=== PATIENT | female | born 1955 | race Caucasian/White ===

== ENCOUNTER 2018-04-07 05:00 | Inpatient (IN) ==
[2018-04-07] MEDS ORDERED: 0.9 % SODIUM CHLORIDE 250 ML IV SCH ×4 (05:15→08:45)
[2018-04-07] MEDS ORDERED: NOREPINEPHRINE BITARTRATE 8 MG in 0.9 % SODIUM CHLORIDE 242 ML IV SCH ×2 (05:15→19:15)
[2018-04-07] MEDS ORDERED: 0.9 % SODIUM CHLORIDE 2,000 ML IV ONE (05:26)
[2018-04-07] MEDS ORDERED: 0.9 % SODIUM CHLORIDE 1,000 ML IV ONE ×2 (05:42→06:34)
[2018-04-07] MEDS ORDERED: NOREPINEPHRINE BITARTRATE 4 MG/4 ML VIAL IV ONE (05:44)
[2018-04-07] MEDS ORDERED: cefTRIAXone 1 GM VIAL IM ONE (05:44)
[2018-04-07] MEDS ORDERED: NOREPINEPHRINE BITARTRATE 16 MG in 0.9 % SODIUM CHLORIDE 234 ML IV SCH (05:45)
[2018-04-07] MEDS ORDERED: cefTRIAXone 1 GM VIAL IV ONE (05:56)
[2018-04-07 06:00] LABS: Basophils # (Auto) 0 K/mcL (0.0-0.3); Basophils % (Auto) 0 % (0.0-2.0); Eosinophils # (Auto) 0 K/mcL (0.0-0.7); Eosinophils % (Auto) 0 % (0.0-7.0); Granulocytes % (Auto) 97.2 % (38.0-78.0); Lymphocytes # (Auto) 0.5 K/mcL (1.5-4.8); Lymphocytes % (Auto) 1.1 % (15.5-49.0); Mean Cell Volume 90.7 fL (80.0-100.0); Mean Corpuscular HGB Conc 32.9 g/dL (31.0-36.0); Monocytes # (Auto) 0.7 K/mcL (0.1-0.9); Monocytes % (Auto) 1.7 % (1.0-12.0); Platelet Count 129 K/mcL (140-440); RBC 3.81 M/mcL (4.00-5.20); Red Cell Distribution Width 14.1 % (11.5-14.5)
--- NOTE | 2018-04-07 06:13 | Emergency Department Note ---
Weakness HPI - General Chief complaint: Weakness Stated complaint: weakness, diarrhea, and dizziness Time Seen by Provider: 04/07/18 05:04 Source: patient, EMS Mode of arrival: EMS - History of Present Illness HPI Narrative: This 62-year-old comes via ambulance after calling EMS herself because of weakness she could hardly even walk across the nur she was so weak. She is eaten poorly recently lost 4 pounds and has not drank that well. She describes back spasms and abdominal pain and fever with chills and shivers in the past couple of days. She recently started Cipro with 1 dose just last evening or the evening before. This is her fourth urinary tract infection since September she reports. REVIEW OF SYSTEMS: Reports chronic runny nose. No chest pain. Feels short of breath with the chills and shakes. Has been nauseated but no vomiting. She has had 3 episodes of diarrhea in the last evening. Her stools seem dark but she did not see specifically any blood Has some chronic sinus headache. Some dizziness/lightheadedness and imbalance and nearly feeling like she is going to pass out but has not fallen. Has some right upper back near the trapezius area discomfort that has been going on for a month or so. No anxiety or depression. - Related Data Home Medications Medication Instructions Recorded Confirmed alprazolam 0.25 mg tablet 0.125 mg PO Q8H PRN tab 01/05/15 01/05/15 coenzyme Q10 200 mg capsule 200 mg PO QDAY cap 01/05/15 01/05/15 fluticasone 50 mcg/actuation nasal 2 spray INTRANASAL QDAY g 01/05/15 01/05/15 spray,suspension hydrocodone 7.5 mg-acetaminophen 1 tab PO QID tab 01/05/15 01/05/15 325 mg tablet lisinopril 5 mg tablet 5 mg PO QDAY PRN 01/05/15 01/05/15 methocarbamol 750 mg tablet 750 mg PO QID tab 01/05/15 01/05/15 niacin ER 500 mg capsule,extended See Dose Instructions PO .COMPLEX 01/05/15 01/05/15 release pravastatin 40 mg tablet 40 mg PO QDAY tab 01/05/15 01/05/15 sitagliptin 50 mg-metformin 500 mg 1 tab PO BID 01/05/15 01/05/15 tablet Allergies Allergy/AdvReac Type Severity Reaction Status Date / Time aloe Allergy Unknown unknown Unverified 01/05/15 15:55 Penicillins Allergy Unknown unknown Unverified 01/05/15 15:55 propoxyphene [From Darvon] Allergy Unknown unknown Unverified 01/05/15 15:55 Past Medical History - Past Medical History [facility] Narrative: Medical History (Last Updated 04/07/18 @ 06:16 by Ke Molina DO) Tobacco abuse (Chronic) Diabetes mellitus, type II (Chronic) Recurrent UTI (urinary tract infection) (Chronic) Hypertension, essential (Chronic) Microalbuminuria (Chronic) Hyperlipidemia (Chronic) Hypertriglyceridemia (Chronic) Restless leg syndrome (Chronic) GERD (gastroesophageal reflux disease) (Chronic) Depression screening (Chronic) Back pain (Chronic) DDD (degenerative disc disease), cervical (Chronic) Spinal stenosis, cervical region (Chronic) Neck pain (Resolved) Family History Father History of coronary artery bypass surgery Malignant neoplasm of lung Mother History of coronary artery bypass surgery Type 2 diabetes mellitus Sister Type 2 diabetes mellitus Medical history: Denies: cancer, coronary artery disease, CVA, DVT, hypoth yroidism, myocardial infarction, pneumonia, pulmonary embolus Psychiatric history: Denies: anxiety, depression - Social History smoking status: Current every day smoker (3/4 pack/day) Alcohol use: Denies: None Drug use: Denies: none, marijuana Physical Exam General appearance: alert, lethargic, malaise Head: atraumatic, normocephalic Eye: Present: EOMI ENT: mucous membranes dry, other (Very dry lips) Neck: Present: trachea midline. Absent: lymphadenopathy, thyromegaly Chest: Present: symmetric chest wall rise Respiratory: Present: normal lung sounds bilaterally. Absent: respiratory distr ess, wheezes, stridor, accessory muscle use, prolonged expiratory phase Cardiovascular: Present: regular rate, normal rhythm. Absent: systolic murmur, diastolic murmur Abdominal: Present: soft. Absent: distention, tenderness, guarding, rebound, rigidity, organomegaly, mass Extremities: Absent: pedal edema, pretibial edema, calf tenderness Back: Absent: CVA tenderness (R), CVA tenderness (L), spinous process tenderness Neurological: Present: alert, oriented X3, other (Mildly slow speech.) Psychiatric: Present: flat affect, serious Skin: Present: warm, dry Course Vital Signs Blood Pressure 71/45 04/07/18 05:10 Temperature 96.9 F L 04/07/18 05:51 Pulse Rate 85 04/07/18 05:51 Respiratory Rate 21 04/07/18 05:51 Blood Pressure 81/53 04/07/18 05:51 Pulse Oximetry (%) 100 04/07/18 05:51 Weakness - MDM Narrative Medical decision making narrative: Patient arrived hypotensive and was seen around 5:07 AM. She was given 2 L of IV fluids followed by a third. 2 of these were heated. Levo fed was started because of blood pressures persisting in the 70s systolic even after 2+ liters of fluid. She weighs 50 kg. She was talking and interacting with us during all of this time. She was clear in her NO CPR choice explaining that her 6 years ago and she has no surviving children. She lives in her home with several nieces and nephews or grandnieces. Blood cultures and multiple labs were obtained. Lactic acid comes back with 5.9 and WBC of 43.5. This is with a marketed shift of granulocytosis. Blood sugar at 90. Rocephin 1 g was given. Levophed titrated from 8 to 10 to 13 to 16 mcg/min as of 6:19 AM. EKG demonstrates normal sinus rhythm consistently in the 80s (interesting that she did not ever develop a tachycardia). EKG shows no ACS findings. Listed is prolonged QT interval and biatrial abnormalities. Saini catheter with thermometer placed with 0 urine return. 6:15 AM I spoke with hospitalist, Dr. Crump, who agrees to assist in management of this patient and to see her. - Lab Data Lab results reviewed: Yes I reviewed the patient's lab results. Result diagrams: 04/07/18 05:15 04/07/18 05:15 Lab Results 04/07/18 04/07/18 04/07/18 Range/Units 05:15 05:15 05:15 WBC 43.5 H* (4.5-11.0) K/mcL RBC 3.81 L (4.00-5.20) M/mcL Hgb 11.4 L (12.0-15.0) g/dL Hct 34.6 L (36.0-48.0) % MCV 90.7 (80.0-100.0) fL MCH 29.8 (26.0-34.0) pg MCHC 32.9 (31.0-36.0) g/dL RDW 14.1 (11.5-14.5) % Plt Count 129 L (140-440) K/mcL MPV 8.3 (7.4-10.4) fL Gran % 97.2 H (38.0-78.0) % Lymph % (Auto) 1.1 L (15.5-49.0) % [place] % (Auto) 1.7 (1.0-12.0) % Eos % (Auto) 0 (0.0-7.0) % Baso % (Auto) 0 (0.0-2.0) % Gran # 42.3 H (1.8-8.0) K/mcL Lymph # (Auto) 0.5 L (1.5-4.8) K/mcL [place] # (Auto) 0.7 (0.1-0.9) K/mcL Eos # (Auto) 0 (0.0-0.7) K/mcL Baso # (Auto) 0 (0.0-0.3) K/mcL VBG Lactic Acid 5.9 H* (0.5-2.0) mmol/L Troponin T < 0.01 (0-0.03) ng/ml Disposition Pt seen by FORDER OPERATOR/PA only: No Clinical Impression: Sepsis due to urinary tract infection, Upper back pain on right side Hypotension Qualifiers: Hypotension type: other hypotension type Qualified Code(s): I95.89 - Other hypotension Diabetes mellitus type 2, controlled, with complications Qualifiers: Diabetes mellitus manager long term care insulin use: without manager long term care use Qualified Code(s): E11.8 - Type 2 diabetes mellitus with unspecified complications Disposition: Xfer As Inpt ([facility]) Referrals: Sveta Mahoney ARNP [Primary Care Provider] -
[2018-04-07 06:14] LABS: ALT/SGPT 106 U/l (0-40); Albumin 2.5 gm/dL (3.2-5.2); Alkaline Phosphatase 258 U/L (39-117); Blood Urea Nitrogen 39 mg/dl (8-23); C-Reactive Protein 16.9 mg/dl (0.0-0.8)
[2018-04-07] MEDS ORDERED: VASOPRESSIN 20 UNIT in DEXTROSE 5% IN WATER 99 ML IV SCH ×2 (06:45→14:45)
[2018-04-07] MEDS ORDERED: VASOPRESSIN 20 UNIT in DEXTROSE 5% IN WATER 99 ML IV ONE ×2 (06:50→08:45)
--- NOTE | 2018-04-07 07:22 | Internal Med History&Physical ---
Medical - H&P: HPI Patient information: Note initiated : 04/07/18 at 7:18 am Service Date, if different from initiated Date: [] Patient: Giselle Brice a 62 y/o F admitted on for weakness, diarrhea, and dizziness. Chief Complaint: [] History of present illness: Ms. Brice is a 62 year old F with h/o DM, HTN, HLD presents to the ER today for evaluation of weakness. The patient notes that she has been having foul smelling urine for quite a while now, over 4-6 weeks, the patient was being followed by her PCP in the outpatient clinic and had completed 1 round of antibiotics, I believe symptoms persisted and her abx was changed to cipro, she took the first dose yesterday evening. The patient does not know the first abx, thinks it started with a "T". The patient since last evening has not been feeling well, just very weak and tired, unable to ambulate from the bed to the bathroom, and she therefore decided to come to the ER for further eval The patient notes since 1 week she has been having left flank pain, intermittent, and worsening back spams, the patient notes it radiates up or down, no aggravating or relieving factors, she does not have the pain right now. The patient admits to having history of some kidney stones in the past. Patient notes that she has some nausea and has not been eating well but notes that she has been drinking her usual amounts of fluids. She also complains of increased cramps. She denies any headache sinus pain difficulty in swallowing changes in hearing changes in vision, denies any cough chest pain, she admits to having shortness of breath with minimal exertion, she admits to having 3 episodes of diarrhea since last night. She has not passed any urine. The patient denies any new joint pains skin rashes, denies any depression denies any other complaints On presentation to the hospital the patient was hypothermic 88.8, heart rate 89, blood pressure 64/42 ( lowest) respirations 18, saturating 90% on room air. Chest x-ray was negative. The patient's labs showed a WBC count of 40,500, hemoglobin 11.4, platelets 129. Sodium 132, potassium 3.4 chloride 102, bicarbonate 12.9 gap 18, creatinine 2.7 BUN 39 AST 106 ALT 86 alkaline phosphatase 258, lactic acid 5.9, albumin 2.5 Patient was given IV antibiotics blood cultures were sent no urine was available as the patient did not make any urine despite placing a Saini catheter, patient was given 2 L of IV fluids and then started on Levophed. Patient is being admitted to the hospital to the ICU patient's previous cultures reviewed, urine cultures were sent on 19 February which is growing E. coli pansensitive except tetracycline, 03/01 showed a mixed growth, and 04/06 is showing gram-negative bacillus for the speciation pending All systems: reviewed and no additional remarkable complaints except as stated (as per HPI rest negative) Medical - H&P: PMH Medical history: DM HTN HLD Chr back pain smoker History of renal stones as per patient Surgical history: Hysterectomy Pertinent family history: Mother father and sister all had myocardial infarct Social history: Active smoker, [id number] history of smoking Denies any active use of alcohol denies any use of marijuana or any other drugs Medical - H&P: Meds Home Medications Medication Instructions Recorded Confirmed Type coenzyme Q10 200 mg capsule 200 mg PO QDAY cap 01/05/15 04/07/18 History fluticasone 50 mcg/actuation nasal 2 spray INTRANASAL QDAY g 01/05/15 04/07/18 History spray,suspension hydrocodone 7.5 mg-acetaminophen 1 tab PO QID tab 01/05/15 04/07/18 History 325 mg tablet lisinopril 5 mg tablet 5 mg PO QDAY 01/05/15 04/07/18 History methocarbamol 750 mg tablet 750 mg PO QID tab 01/05/15 04/07/18 History pravastatin 40 mg tablet 40 mg PO QDAY tab 01/05/15 04/07/18 History sitagliptin 50 mg-metformin 500 mg 1 tab PO BID 01/05/15 04/07/18 History tablet Allergies Allergy/AdvReac Type Severity Reaction Status Date / Time aloe Allergy Unknown unknown Unverified 01/05/15 15:55 Penicillins Allergy Unknown unknown Unverified 01/05/15 15:55 propoxyphene [From Darvon] Allergy Unknown unknown Unverified 01/05/15 15:55 Medical - H&P: Exam - Constitutional Vitals: Temp Pulse Resp BP Pulse Ox 97.7 F 92 H 19 88/51 98 04/07/18 07:01 02/23/19 07:01 04/07/18 07:01 04/07/18 07:01 04/07/18 07:01 Exam: GENERAL: The patient is a well-developed, well-nourished in no apparent distress. Is alert and oriented x3. VITAL SIGNS: Reviewed and as noted elsewhere. HEENT: Head is normocephalic and atraumatic. Extraocular muscles are intact. Pupils are equal, round, and reactive to light. Nares appeared normal. Mouth appears any without lesions. Mucous membranes are dry. NECK: Normal to inspection, Supple, No lymphadenopathy or thyromegaly. LUNGS: Air entry equal on both sides, no wheezing, crackles or rhonchi noted. No accessory muscles of respiration HEART: Regular rate and rhythm normal, S1 and S2 heard, no Gallop, S3 or Rub N oted, No Gross murmur heard. ABDOMEN: Soft, nontender, and nondistended. RUQ tenderness present, Left flank tenderness, Positive bowel sounds. No hepatosplenomegaly was noted. EXTREMITIES: No cyanosis, clubbing, rash, lesions or edema. NEUROLOGIC: Cranial nerves II through XII are grossly intact. Motor and Sensory System Grossly Intact PSYCHIATRIC: Normal affect, Normal Mood. Appropriate Behavior. SKIN: No ulceration or wounds noted, No jaundice, No rash noted. Medical - H&P: Reslt - Labs CBC & Chem 7: 04/07/18 05:15 04/07/18 05:15 Labs: Short CBC 04/07/18 Range/Units 05:15 WBC 43.5 H* (4.5-11.0) K/mcL Hgb 11.4 L (12.0-15.0) g/dL Hct 34.6 L (36.0-48.0) % Plt Count 129 L (140-440) K/mcL BMP 04/07/18 05:15 Sodium 132 L Potassium 3.4 Chloride 102 Carbon Dioxide 12 L BUN 39 H Creatinine 2.7 H Glucose 102 Calcium 8.0 L Cardiac Enzymes 04/07/18 Range/Units 05:15 Troponin T < 0.01 (0-0.03) ng/ml Liver Function 04/07/18 Range/Units 05:15 Total Bilirubin 0.3 (0.0-1.0) mg/dL AST 86 H (0-37) U/l ALT 106 H (0-40) U/l Alkaline Phosphatase 258 H (39-117) U/L Albumin 2.5 L (3.2-5.2) gm/dL Medical - H&P: A/P - Narrative A/P Narrative: A/P Severe sepsis with shock Urosepsis Lactic Acidosis Acute Kidney Injury, with Anuria Abnormal Liver function test Thrombocytopenia Hypoalbuminemia Hypokalemia HTN DM HLD Hypothermia on presentation (resolved) Plan Admit to ICU Aggressive fluid resuscitation, 4L already given in ER, will give another 2 Levophed and vasopressin as needed to keep MAP > 65 If pt is unable to wean off pressors soon, will place central line, will see if there is a need for HD, in which case a trialysis catheter would be more appropriate. Get CT abdomen and pelvis without contrast IV rocephin for now, follow cultures, likely urinary source Nephrology consult given severe acidosis and Renal failure with anuria Hold bp meds SSI insulin for glucose control DVT hep sq Full code NPO for now.
--- NOTE | 2018-04-07 07:45 | XRay Report ---
INDICATION: Dyspnea TECHNIQUE: AP chest x-ray,portable semiupright COMPARISON: Previous chest x-rays dated 0 623 11/17/2022 7 FINDINGS:Lungs are negative. No parenchymal infiltrate or mass. Heart size and vascularity are normal. No pulmonary edema. No pulmonary congestion. No acute abnormality or interval change IMPRESSION: Negative AP chest x-ray Interpreted and Authenticated by: Gonzales Thornton 04/07/18
--- NOTE | 2018-04-07 08:03 | Nephrology Consult Note ---
History of Present Illness - Reason for Consult Patient information: Note initiated : 04/07/18 at 8:01 am Patient: Giselle Brice 62 y/o F admitted on for weakness, diarrhea, and dizziness. Consult date: 04/07/18 acute renal failure, hyponatremia, metabolic acidosis Requesting physician: Frances Crump - Chief Complaint Weakness - History of Present Illness Giselle Brice is a 62-year-old female with hypertension, hyperlipidemia, diabetes mellitus type 2, being admitted on 04/07/18. She presented to ED for weakness. She has been given multiple courses of antibiotics for urinary infection. She has remote history of kidney stones. Review of Systems Constitutional: lethargy, weakness Nose, mouth and throat: no nasal congestion, no sore throat Cardiovascular: no chest pain, no palpatations Respiratory: no cough, no dyspnea Gastrointestinal: diarrhea, no abdominal pain, no nausea, no vomiting Genitourinary: no hematuria Musculoskeletal: no joint swelling, no neck pain Integumentary: no rash, no wounds Neurological: no confusion, no focal weakness Psychiatric: no anxiety, no panic attacks Endocrine: no cold intolerance, no heat intolerance Hematologic/Lymphatic: no easy bleeding, no easy bruising Allergic/Immunologic: no tongue swelling, no uticaria Past History Past medical history: hypertension Hyperlipidemia Diabetes mellitus type 2 Past surgical history: Hysterectomy Past family history: No history of kidney disease Past social history: Active smoker, [id number] history of smoking Denies any active use of alcohol denies any use of marijuana or any other drugs Medications and Allergies Home Medications Medication Instructions Recorded Confirmed Type coenzyme Q10 200 mg capsule 200 mg PO QDAY cap 01/05/15 04/07/18 History fluticasone 50 mcg/actuation nasal 2 spray INTRANASAL QDAY g 01/05/15 04/07/18 History spray,suspension hydrocodone 7.5 mg-acetaminophen 1 tab PO QID tab 01/05/15 04/07/18 History 325 mg tablet lisinopril 5 mg tablet 5 mg PO QDAY 01/05/15 04/07/18 History methocarbamol 750 mg tablet 750 mg PO QID tab 01/05/15 04/07/18 History pravastatin 40 mg tablet 40 mg PO QDAY tab 01/05/15 04/07/18 History sitagliptin 50 mg-metformin 500 mg 1 tab PO BID 01/05/15 04/07/18 History tablet Allergies Allergy/AdvReac Type Severity Reaction Status Date / Time aloe Allergy Unknown unknown Unverified 01/05/15 15:55 Penicillins Allergy Unknown unknown Unverified 01/05/15 15:55 propoxyphene [From Darvon] Allergy Unknown unknown Unverified 01/05/15 15:55 Exam - Vital Signs Vital signs: Temp Pulse Resp BP Pulse Ox 97.7 F 91 H 18 120/60 99 04/07/18 07:29 04/07/18 07:29 04/07/18 07:29 04/07/18 07:21 04/07/18 07:29 - General Appearance General appearance: appears started age, fatigue EENT: mucous membranes moist Neck: supple Respiratory: clear Cardiology: no edema Gastrointestinal: no tenderness Integumentary: no rash, warm and dry Neurologic: no focal deficit, alert and oriented x3 Musculoskeletal: no deformities Psychiatric: mood/affect appropriate, cooperative Results - Lab Results 04/07/18 05:15 04/07/18 05:15 Most recent lab results Calcium 8.0 mg/dl (8.6-10.4) L 04/07/18 05:15 Assessment and Plan (1) Acute kidney injury Acute kidney injury with anuria likely acute tubular necrosis associated with s epsis, with high anion gap metabolic acidosis (lactic acidosis) and hyponatremia, present on arrival. There is no recent history of IV contrast administration or NSAID use. Plan: IV fluid resuscitation is in progress. CT Abdomen and Pelvis without contrast, urinalysis requested. No need for acute hemodialysis. Avoid NSAIDs, nephrotoxic medications and IV contrast. Monitor BMP and urine output. Status: Acute Priority: High (2) Metabolic acidosis Status: Acute Priority: Medium
--- NOTE | 2018-04-07 08:19 | Cat Scan Report ---
CLINICAL INFORMATION: Renal failure. Urosepsis. COMPARISON: None. TECHNIQUE: Axial images were obtained through the abdomen and pelvis. Sagittally and coronally reformatted images. FINDINGS: There are renal calculi bilaterally. Multiple right renal stones. No hydronephrosis or hydroureter. There are multiple left renal stones. There is a 9 mm calculus at the left ureteropelvic junction. Left kidney is enlarged and edematous. The collecting system is not well visualized. There is probable mild hydronephrosis. Pyonephrosis is suspected. There is a 14 mm round mass in the posterior mid right kidney. Appearance is consistent with a hyperdense cyst. There is a probable 3.8 cm left upper pole cyst. There is an 8 mm hyperdense mid to upper pole round abnormality in the left kidney. This is probably a hyperdense cyst. Follow-up ultrasound is recommended to better evaluate for cysts and rule out solid mass. Both kidneys appear edematous and pyelonephritis is possible, left worse than right Urinary bladder is not distended. There is no bladder calculus. There is a Saini catheter in the vagina. This needs to be repositioned. The nurse in the emergency room was called, 04/07/2018, 0800 Lung bases are negative. No focal infiltrate. There is no pleural fluid. No pericardial fluid. Liver is negative to the limits of noncontrast enhanced examination. No hepatic abscess or detectable mass. Liver contour is smooth. No significant ascites. Gallbladder is present. There is no calcified stone. Spleen is not enlarged. Pancreas is negative. No detectable pancreatic mass. No peripancreatic fluid collection. Adrenal glands are prominent but without definite discrete mass. No detectable colonic mass. No evidence for diverticulitis. No mechanical small bowel obstruction. Previous hysterectomy. No adnexal mass. There is no pneumoperitoneum. No biliary or portal venous gas. No intra-abdominal abscess. There is extensive soft tissue edema with infiltration of mesenteric and retroperitoneal fat. There is extensive perinephric edema. No perinephric abscess. IMPRESSION: 1. Multiple renal calculi bilaterally. 9 mm stone at the left ureteropelvic junction with mild left hydronephrosis. Pyonephrosis is possible. Pyelonephritis is also possible 2. Retroperitoneal and mesenteric edema. There is infiltration of the perinephric spaces bilaterally without discrete perinephric abscess 3. Saini catheter within the vagina. This should be repositioned 4. No intra-abdominal abscess The exam was performed using radiation dose optimization techniques including, but not limited to, automated exposure control, adjustment of the mA and/or kV according to patient size and use of iterative reconstruction technique. Interpreted and Authenticated by: Gonzales Thornton 04/07/18
[2018-04-07] MEDS ORDERED: DEXTROSE 31 GM ORAL.SUSP PO PRN ×2 (08:45→13:21)
[2018-04-07] MEDS ORDERED: ONDANSETRON 4 MG/2 ML VIAL IV PRN ×2 (08:45→13:21)
[2018-04-07] MEDS ORDERED: cefTRIAXone 2 GM in DEXTROSE 5% IN WATER 50 ML IV SCH (08:45)
[2018-04-07] MEDS ORDERED: HYDROmorphone 2 MG/ML VIAL IV PRN ×2 (08:45→13:21)
[2018-04-07] MEDS ORDERED: DEXTROSE 50% 50 ML VIAL IV PRN ×2 (08:45→13:21)
[2018-04-07] MEDS ORDERED: LACTATED RINGERS 1,000 ML IV SCH (08:45)
[2018-04-07] MEDS ORDERED: POTASSIUM CHLORIDE 20 MEQ PACKET PO ONE (08:45)
[2018-04-07] MEDS ORDERED: ALBUTEROL SULFATE 2.5 MG/3 ML NEBULIZER NEB PRN ×2 (08:45→13:21)
[2018-04-07] MEDS ORDERED: PRAVASTATIN 40 MG TABLET PO SCH (09:00)
[2018-04-07] MEDS ORDERED: FLUTICASONE PROPIONATE SPRAY.NAS NS SCH (09:00)
[2018-04-07] MEDS ORDERED: SIMVASTATIN 20 MG TABLET PO SCH (09:00)
[2018-04-07] MEDS: INSULIN LISPRO 1 UNIT/0.01 ML UNIT SQ SCH ×4 (09:10→20:44)
[2018-04-07] MEDS: HEPARIN 5,000 UNIT/ML VIAL SQ SCH ×3 (09:19→20:45)
[2018-04-07 09:20] LABS: Appearance,Urine HAZY; Bacteria,Urine 0 /hpf (0); Bilirubin,Urine NEG (NEG); Color,Urine YELLOW; Glucose,Urine (UA) NEGATIVE (NEG); Leukocyte Esterase,Urine 250 /uL (NEG); Protein,Urine NEG (NEG); Specific Gravity,Urine 1.008 (1.000-1.035); Urine Amorphous Crystals MOD /hpf (0); Urine Blood 0.2 mg/dL (<0.03); Urine RBC 4 /hpf (0-1); Urine Squamous Epithelial Cell 1 /hpf (0-4); Urine WBC 23 /hpf (0-4); Urobilinogen,Urine NEG (NEG)
[2018-04-07] MEDS ORDERED: LORazepam 2 MG/ML VIAL IV ONE (09:26)
[2018-04-07] MEDS ORDERED: MAGNESIUM SULFATE 2 GM/50 ML BAG IV ONE (10:40)
[2018-04-07] MEDS: HYDROCODONE/APAP 7.5/325MG TABLET PO SCH ×4 (10:49→20:58)
--- NOTE | 2018-04-07 10:49 | Procedure Note ---
Procedures - Central Line Placement Right IJ Time out performed: Yes Patient placed on monitor/pulse ox: Yes MD prep: mask, sterile gown, sterile gloves, cap Central line prep: 2% Chlorhexidine scrub Local anesthesia used: lidocaine 1% Ultrasound used for placement: Yes Central line lumen inserted: quad, 16 cm Post procedure: sutured in place, good blood return, all ports aspirated, flushed, capped, sterile dressing applied Post procedure x-ray: tip of catheter in good position, no pneumothorax seen Patient tolerated procedure: well, no complications Complications: none
[2018-04-07] MEDS: METHOCARBAMOL 750 MG TABLET PO SCH ×4 (10:50→20:59)
--- NOTE | 2018-04-07 10:55 | XRay Report ---
INDICATION: Status post right central venous catheter placement TECHNIQUE: AP chest x-ray,portable COMPARISON: Previous examination dated 04/07/2018 FINDINGS:Right central venous catheter with its tip at the junction of superior vena cava and right atrium. There is no detectable pneumothorax. Lungs remain negative. No focal pulmonary parenchymal infiltrate or mass. Heart size and vascularity are normal. IMPRESSION: 1. Right central venous catheter has the junction of the right atrium and superior vena cava 2. No pneumothorax Interpreted and Authenticated by: Gonzales Thornton 04/07/18
[2018-04-07] MEDS ORDERED: POTASSIUM CHLORIDE 40 MEQ in DEXTROSE 5% IN WATER 250 ML IV ONE (11:00)
[2018-04-07] MEDS ORDERED: fentaNYL 100 MCG/2 ML VIAL IV ONE (12:25)
[2018-04-07] MEDS ORDERED: MIDAZOLAM 2 MG/2 ML VIAL IV ONE (12:25)
[2018-04-07] MEDS ORDERED: LIDOCAINE HCL/PF 100 MG/5 ML SYRINGE IV ONE (12:25)
[2018-04-07] MEDS ORDERED: ONDANSETRON 4 MG/2 ML VIAL IV ONE (12:25)
[2018-04-07] MEDS ORDERED: PHENYLEPHRINE 10 MG/ML VIAL IV ONE (12:25)
[2018-04-07] MEDS ORDERED: PROPOFOL 200 MG/20 ML VIAL IV ONE (12:25)
[2018-04-07] MEDS ORDERED: DEXAMETHASONE 10 MG/ML VIAL IV ONE (12:25)
--- NOTE | 2018-04-07 12:46 | Brief Operative Note ---
Date of procedure: 04/07/18 Pre-op diagnosis: left pyelonephritis Post-op diagnosis: same Procedure: left ureteral stent Grafts/Implants: Yes (ureteral stent) Anesthesia: GLMA Findings: see note Complications: none Surgeon: Moose Hu Specimens Removed/Pathology: none sent Condition: stable Disposition: ICU
--- NOTE | 2018-04-07 13:13 | XRay Report ---
CLINICAL INFORMATION: Obstructing calculus and urosepsis. Left ureteral stent placement TECHNIQUE: 0.7 minutes fluoroscopy utilized by Dr Hu. Spot films obtained. Left ureteral stent was placed. Spot film demonstrates a stent passing the left sided stone at the ureterovesical junction and within the left renal collecting system. IMPRESSION: Fluoroscopy and spot films obtained. Left ureteral stent placement by Dr. Hu Interpreted and Authenticated by: Gonzales Thornton 04/07/18
--- NOTE | 2018-04-07 13:40 | History and Physical Report ---
DATE OF ADMISSION: 04/07/2018 PREOPERATIVE DIAGNOSIS: Left renal stone. REQUESTING PHYSICIAN: Dr. Crump. HISTORY OF PRESENT ILLNESS: Mrs. Brice is a 62-year-old lady, who has hypertension, hyperlipidemia and diabetes, who was admitted for urinary infection and also a left renal stone. She has been treated on and off for an infection for the last month and recently was switched over to Cipro because she was not improving. She did develop left flank pain and weakness. A CT scan was obtained, which showed a high-grade obstruction of the left kidney. Her white count was 43,000. She had a stone about 10 years ago and never underwent intervention for this. She denied any burning with urination. She presents now for left stent placement. PAST MEDICAL HISTORY: Significant for hypertension, hyperlipidemia and diabetes. PAST SURGICAL HISTORY: Hysterectomy. FAMILY HISTORY: Noncontributory. SOCIAL HISTORY: Does smoke. No alcohol. ALLERGIES: PENICILLIN, BUT SHE DOES NOT KNOW WHAT SHE DEVELOPED WITH THIS AND DARVON. HOME MEDICATIONS: Fluticasone, hydrocodone, lisinopril, pravastatin and sitagliptin and metformin. REVIEW OF SYSTEMS: CONSTITUTIONAL: Positive lethargy, weakness. CARDIOVASCULAR: No chest pain. RESPIRATORY: No wheezing, coughing or asthma. GASTROINTESTINAL: Positive diarrhea. GENITOURINARY: As above. MUSCULOSKELETAL: No joint swelling. The rest of 12-point review of systems is negative. PHYSICAL EXAMINATION: GENERAL: This is a pleasant lady in slight distress. VITAL SIGNS: As listed per nurse's notes. HEENT: Atraumatic, normocephalic. Extraocular movements are intact. Pupils equal, reactive to light and accommodation. Mucosa is normal. NECK: Supple. RESPIRATORY: Clear to auscultation. HEART: Regular rate and rhythm. ABDOMEN: Soft, nontender. : Normal female anatomy. EXTREMITIES: Without clubbing, cyanosis or edema. NEUROLOGIC: Intact. Cranial nerves II-XII intact. LABORATORY DATA: Creatinine is 2.7. White count of 43.5. IMPRESSION: The patient with a left renal stone. This appears to be obstructing and causing sepsis. I will take her to the operating room for stent placement. I have gone over the procedure with the patient and complications including bleeding, infection, pain, non-cure of the problem, need for additional therapy and she understands. A full PARQ discussion was held and we will follow up at the time of surgery. MICAH:salome Job ID: [id number] Doc ID: [id number] Moose Hu MD
[2018-04-07] MEDS ORDERED: 0.9 % SODIUM CHLORIDE 10 ML SYRINGE IV SCH ×2 (14:00→21:00)
[2018-04-07] MEDS: 0.9 % SODIUM CHLORIDE 10 ML SYRINGE IV SCH ×3 (14:26→20:58)
[2018-04-07] MEDS: 0.9 % SODIUM CHLORIDE 250 ML IV SCH (14:29)
[2018-04-07] MEDS: LACTATED RINGERS 1,000 ML IV SCH ×2 (15:14→22:27)
[2018-04-07] MEDS: NOREPINEPHRINE BITARTRATE 16 MG in 0.9 % SODIUM CHLORIDE 234 ML IV SCH (16:20)
[2018-04-08] MEDS: 0.9 % SODIUM CHLORIDE 250 ML IV SCH ×2 (04:00→13:56)
[2018-04-08 05:27] LABS: ALT/SGPT 78 U/l (0-40); Albumin 2.2 gm/dL (3.2-5.2); Albumin/Globulin Ratio 0.8 (1.0-2.3); Alkaline Phosphatase 202 U/L (39-117); Bilirubin,Direct < 0.2 mg/dL (0.0-0.3); Blood Urea Nitrogen 29 mg/dl (8-23); Gamma Glutamyl Transpeptidase 106 U/L (5-36); Uric Acid 5.4 mg/dL (2.5-8.0)
[2018-04-08 05:28] LABS: Basophils # (Auto) 0 K/mcL (0.0-0.3); Basophils % (Auto) 0 % (0.0-2.0); Eosinophils # (Auto) 0 K/mcL (0.0-0.7); Eosinophils % (Auto) 0 % (0.0-7.0); Granulocytes % (Auto) 97.3 % (38.0-78.0); Lymphocytes % (Auto) 1.9 % (15.5-49.0); Mean Cell Volume 91.7 fL (80.0-100.0); Mean Corpuscular HGB Conc 32.5 g/dL (31.0-36.0); Monocytes # (Auto) 0.4 K/mcL (0.1-0.9); Monocytes % (Auto) 0.8 % (1.0-12.0); Platelet Count 120 K/mcL (140-440); RBC 3.77 M/mcL (4.00-5.20)
[2018-04-08] MEDS ORDERED: NOREPINEPHRINE BITARTRATE 16 MG in 0.9 % SODIUM CHLORIDE 234 ML IV SCH (05:45)
[2018-04-08] MEDS: 0.9 % SODIUM CHLORIDE 10 ML SYRINGE IV SCH ×9 (05:46→20:17)
[2018-04-08] MEDS: NOREPINEPHRINE BITARTRATE 16 MG in 0.9 % SODIUM CHLORIDE 234 ML IV SCH (06:02)
--- NOTE | 2018-04-08 06:36 | Nephrology Progress Note ---
Subjective Patient information: Note initiated : 04/08/18 at 6:34 am Patient: Giselle Brice 62 y/o F admitted on 04/07/18 for weakness, diarrhea, and dizziness. Chief Complaint: Weakness Principal diagnosis: Acute kidney injury Pertinent ROS: Sleepy No nausea No abdominal pain Saini catheter No edema Objective - Vital Signs Vital signs: Vital Signs Temp Pulse Resp BP BP Pulse Ox 04/08/18 06:01 68 23 H 96/65 96 04/08/18 05:46 67 20 105/73 96 04/08/18 05:31 62 18 108/68 96 04/08/18 05:17 68 16 96 04/08/18 05:16 67 19 110/70 96 04/08/18 04:46 62 18 98/65 97 04/08/18 04:31 64 18 110/64 96 04/08/18 04:16 63 18 98/67 98 04/08/18 04:01 97.7 F 65 20 101/67 98 04/08/18 03:49 67 21 100 04/08/18 03:46 19 100/65 04/08/18 03:31 67 21 103/76 97 04/08/18 03:16 69 20 107/71 98 04/08/18 03:01 64 18 109/76 97 04/08/18 02:46 64 19 97/70 97 04/08/18 02:31 65 18 110/67 97 04/08/18 02:16 66 19 105/70 98 04/08/18 02:01 64 18 101/73 97 04/08/18 01:46 65 19 100/65 98 04/08/18 01:31 65 19 107/78 96 04/08/18 01:16 64 16 108/68 97 04/08/18 01:04 65 21 96 04/08/18 01:01 68 21 110/72 97 04/08/18 00:46 70 19 118/75 100 04/08/18 00:31 71 21 105/73 98 04/08/18 00:16 64 18 105/69 97 04/08/18 00:01 97.6 F 17 106/71 98 04/07/18 23:31 18 104/63 97 04/07/18 23:25 18 04/07/18 23:01 19 102/65 04/07/18 22:46 19 104/69 04/07/18 22:31 20 98/67 04/07/18 22:16 20 97/64 04/07/18 22:01 15 104/73 04/07/18 21:46 19 105/72 04/07/18 21:31 21 109/66 04/07/18 21:16 24 H 111/72 04/07/18 21:01 19 111/75 04/07/18 20:46 72 19 113/74 97 04/07/18 20:31 73 21 107/72 97 04/07/18 20:16 72 22 105/69 99 04/07/18 20:01 98.5 F 22 121/71 04/07/18 19:46 77 23 H 103/68 97 04/07/18 19:31 73 20 109/71 96 04/07/18 19:16 74 22 115/68 96 04/07/18 19:12 73 21 97 04/07/18 19:01 71 20 105/65 96 04/07/18 18:46 72 21 114/65 97 04/07/18 18:31 72 21 112/66 97 04/07/18 18:02 20 105/68 04/07/18 17:58 82 22 105/68 97 04/07/18 17:31 75 20 85/59 96 04/07/18 17:16 72 21 135/72 97 04/07/18 17:01 78 18 84/56 98 04/07/18 16:56 78 26 H 83/56 98 04/07/18 16:54 77 20 79/54 97 04/07/18 16:46 78 21 80/58 100 04/07/18 16:01 99 F 82 25 H 136/67 99 04/07/18 15:01 76 19 110/69 98 04/07/18 14:31 102 H 36 H 136/68 99 04/07/18 14:01 83 21 126/61 96 04/07/18 13:46 80 19 119/60 99 04/07/18 13:31 80 20 105/62 97 04/07/18 13:16 22 137/65 98 04/07/18 13:10 89 20 137/66 95 04/07/18 13:08 87 16 138/104 98 04/07/18 12:01 100.3 F H 91 H 22 119/65 100 04/07/18 11:31 24 H 90/59 04/07/18 11:01 83 24 H 135/64 98 04/07/18 10:46 88 26 H 130/65 98 04/07/18 10:01 85 21 133/68 100 04/07/18 09:32 20 135/65 04/07/18 09:01 98.7 F 91 H 21 94/55 100 04/07/18 08:45 98.7 F 21 94/55 100 04/07/18 08:11 94 H 21 119/60 100 04/07/18 08:10 95 H 21 100 04/07/18 07:41 97.7 F 19 103/54 04/07/18 07:31 97.7 F 92 H 21 120/57 99 04/07/18 07:29 97.7 F 91 H 18 99 04/07/18 07:21 97.7 F 91 H 22 120/60 99 04/07/18 07:11 97.7 F 92 H 18 120/83 100 04/07/18 07:03 97.7 F 91 H 22 95/50 99 04/07/18 07:01 97.7 F 92 H 19 88/51 98 04/07/18 07:00 97.7 F 89 17 97 04/07/18 06:51 97.7 F 87 19 83/50 100 04/07/18 06:46 97.6 F 87 21 100 04/07/18 06:41 97.6 F 88 18 78/50 100 Intake and Output 04/07/18 04/08/18 04/08/18 21:59 05:59 13:59 Intake Total 3039 1030 300 Output Total 1435 358 70 Balance 1604 672 230 Intake: IV 2379 1030 Lactated Ringers 1,000 ml @ 150 2000 mls/hr IV .Q6H40M [facility] Rx#: [id number] Levophed 16 mg In Sodium 51 30 Chloride 0.9% 234 ml @ 10 MCG/ MIN 9.38 mls/hr IV Q24H [facility] Rx# :[id number] Oral 660 300 Output: Urine Catheter Amount 1275 358 70 Void Amount 160 Other: Meal HS snack Percent of Meal Consumed 100% Feeding Ability Independent Urine Appearance Cloudy Purulent Uretheral (Saini) Cloudy Clear Urine Color Pale Uretheral (Saini) Straw Dark Linda Weight 127 lb 6.4 oz Intake & Output: Intake & Output 04/07/18 04/08/18 04/08/18 21:59 05:59 13:59 Intake Total 3039 1030 300 Output Total 1435 358 70 Balance 1604 672 230 Weight 127 lb 6.4 oz Intake: IV 2379 1030 Lactated Ringers 1,000 ml @ 150 2000 mls/hr IV .Q6H40M [facility] Rx#: [id number] Levophed 16 mg In Sodium 51 30 Chloride 0.9% 234 ml @ 10 MCG/ MIN 9.38 mls/hr IV Q24H [facility] Rx# :[id number] Oral 660 300 Output: Urine Catheter Amount 1275 358 70 Void Amount 160 Other: Meal HS snack Percent of Meal Consumed 100% Feeding Ability Independent Urine Appearance Cloudy Purulent Uretheral (Saini) Cloudy Clear Urine Color Pale Uretheral (Saini) Straw Dark Linda - General Appearance General appearance: appears started age, fatigue EENT: mucous membranes moist Neck: supple Respiratory: clear Cardiology: no edema Gastrointestinal: no tenderness Integumentary: warm and dry Neurologic: no focal deficit, alert and oriented x3 Musculoskeletal: no deformities Psychiatric: mood/affect appropriate, cooperative - Lab 04/08/18 04:00 04/08/18 04:00 Most recent lab results Calcium 8.0 mg/dl (8.6-10.4) L 04/08/18 04:00 Phosphorus 2.6 mg/dL (2.7-4.5) L 04/08/18 04:00 Magnesium 2.1 mg/dL (1.6-2.5) 04/08/18 04:00 Assessment and Plan (1) Acute kidney injury Giselle Brice is a 62-year-old female with hypertension, hyperlipidemia and diabetes mellitus type 2, admitted on 04/07/18 for septic shock. Acute kidney injury associated with sepsis due to pyelonephritis and left ureteropelvic junction stone with mild left hydronephrosis, with initial high anion gap metabolic acidosis (lactic acidosis) and hyponatremia, present on arrival. Work up: Urinalysis on 04/07/18: Yellow, hazy, pH 5.0, SG 1.008, protein negative, occult blood 0.2, leukocyte esterase 250, urine WBC 23. CT Abdomen and Pelvis without contrast on 04/07/18: Multiple renal calculi bilaterally. 9 mm stone at the left ureteropelvic junction with mild left h ydronephrosis. Pyonephrosis is possible. Pyelonephritis is also possible. Retroperitoneal and mesenteric edema. There is infiltration of the perinephric spaces bilaterally without discrete perinephric abscess. Saini catheter within the vagina. This should be repositioned. No intra-abdominal abscess. Progress: Left ureteral stent placed on 04/07/18. Urine output: 2400 ml reported in the past 24 hours. Serum creatinine decreased from 2.7 to 1.4 in the past 24 hours. Metabolic acidosis, improved. Hyponatremia, resolved. Plan: No acute hemodialysis need. Avoid NSAIDs, nephrotoxic medications and IV contrast. Monitor BMP and urine output. Status: Acute Priority: High (2) Metabolic acidosis Please see above Status: Acute Priority: Medium
[2018-04-08] MEDS: METHOCARBAMOL 750 MG TABLET PO SCH ×4 (08:21→20:16)
[2018-04-08] MEDS: INSULIN LISPRO 1 UNIT/0.01 ML UNIT SQ SCH ×4 (08:28→20:15)
[2018-04-08] MEDS: HYDROCODONE/APAP 7.5/325MG TABLET PO SCH (08:29)
[2018-04-08] MEDS ORDERED: FLUTICASONE PROPIONATE SPRAY.NAS NS SCH (09:00)
[2018-04-08] MEDS ORDERED: SIMVASTATIN 20 MG TABLET PO SCH ×3 (09:00→21:00)
[2018-04-08] MEDS ORDERED: cefTRIAXone 2 GM in DEXTROSE 5% IN WATER 50 ML IV SCH ×2 (09:00)
--- NOTE | 2018-04-08 09:20 | Internal Med Progress Note ---
Medical - PN: Subj Patient information: Note initiated : 04/08/18 at 9:12 am Service Date, if different from initiated Date: [] Patient: Giselle Brice a 62 y/o F admitted on 04/07/18 for weakness, diarrhea, and dizziness. Chief Complaint: [] Interval history: Ms. Brice is a 62 year old F with h/o DM, HTN, HLD presents to the ER today for evaluation of weakness. The patient notes that she has been having foul smelling urine for quite a while now, over 4-6 weeks, the patient was being followed by her PCP in the outpatient clinic and had completed 1 round of antibiotics, I believe symptoms persisted and her abx was changed to cipro, she took the first dose yesterday evening. The patient does not know the first abx, thinks it started with a "T". The patient since last evening has not been feeling well, just very weak and tired, unable to ambulate from the bed to the bathroom, and she therefore decided to come to the ER for further eval The patient notes since 1 week she has been having left flank pain, intermittent, and worsening back spams, the patient notes it radiates up or down, no aggravating or relieving factors, she does not have the pain right now. The patient admits to having history of some kidney stones in the past. Patient notes that she has some nausea and has not been eating well but notes that she has been drinking her usual amounts of fluids. She also complains of increased cramps. She denies any headache sinus pain difficulty in swallowing changes in hearing changes in vision, denies any cough chest pain, she admits to having shortness of breath with minimal exertion, she admits to having 3 episodes of diarrhea since last night. She has not passed any urine. The patient denies any new joint pains skin rashes, denies any depression denies any other complaints On presentation to the hospital the patient was hypothermic 88.8, heart rate 89, blood pressure 64/42 ( lowest) respirations 18, saturating 90% on room air. Chest x-ray was negative. The patient's labs showed a WBC count of 40,500, hemoglobin 11.4, platelets 129. Sodium 132, potassium 3.4 chloride 102, bicarbonate 12.9 gap 18, creatinine 2.7 BUN 39 AST 106 ALT 86 alkaline phosphatase 258, lactic acid 5.9, albumin 2.5 Patient was given IV antibiotics blood cultures were sent no urine was available as the patient did not make any urine despite placing a Edmondson catheter, patient was given 2 L of IV fluids and then started on Levophed. Patient is being admitted to the hospital to the ICU patient's previous cultures reviewed, urine cultures were sent on 19 February which is growing E. coli pansensitive except tetracycline, 03/01 showed a mixed growth, and 04/06 is showing gram-negative bacillus for the speciation pending 04/08 Pt seen examined, no acute overnight issues s/p stent placement, pt doing well, off pressors WBC up today, but clinically pt is much better follow up cultures, on IV rocephin 2gms q24hrs xfer to tele status Pertinent ROS: Denies headache, dizziness Denies chest pain, palpitations Denies cough or shortness of breath Denies abdominal pain, nausea or vomiting. - Constitutional Vitals: Vital Signs Temp Pulse Resp BP Pulse Ox 98.6 F 63 18 105/69 98 04/08/18 07:31 04/08/18 07:31 04/08/18 09:02 04/08/18 09:02 04/08/18 09:02 Period Temp Pulse Resp BP Sys/Fischer Pulse Ox Last 24 Hr 97.6 F-100.3 F 62-102 15-36 79-138/54-104 95-100 Intake and Output 04/07/18 04/08/18 04/08/18 21:59 05:59 13:59 Intake Total 3039 1030 300 Output Total 1435 358 210 Balance 1604 672 90 Weight 127 lb 6.4 oz Intake & Output: Intake & Output 04/07/18 04/08/18 04/08/18 21:59 05:59 13:59 Intake Total 3039 1030 300 Output Total 1435 358 210 Balance 1604 672 90 Weight 127 lb 6.4 oz Intake: IV 2379 1030 Lactated Ringers 1,000 ml @ 150 2000 mls/hr IV .Q6H40M [facility] Rx#: [id number] Levophed 16 mg In Sodium 51 30 Chloride 0.9% 234 ml @ 10 MCG/ MIN 9.38 mls/hr IV Q24H [facility] Rx# :[id number] Oral 660 300 Output: Urine Catheter Amount 1275 358 210 Void Amount 160 Other: Meal HS snack Percent of Meal Consumed 100% Feeding Ability Independent Urine Appearance Cloudy Clear Purulent Uretheral (Edmondson) Cloudy Clear Urine Color Pale Bright Yellow Uretheral (Edmondson) Straw Dark Linda Exam: Constitutional; Afebrile, cooperative, alert, not in distress. Eyes- No icterus, , No periorbital swelling Ears- Ext ear normal, hearing normal to conversation. Neck- Midline trachea, supple Respiratory system: Air Entry equal on both sides, No crackles or wheezing, no rhonchi. CVS- Rate rhythm regular, S1,S2 heard, no gallop, no rub. Abdomen- Soft nontender abdomen, no organomegaly, no tenderness, no guarding or rigidity, left cva tenderness improved. [employer]- AOOx3, moving all extremities, no gross focal deficit noted. Medical - PN: Obj Da - Labs CBC & Chem 7: 04/08/18 04:00 04/08/18 04:00 Labs: Abnormal Lab Results 04/08/18 04/08/18 04/07/18 04:00 04:00 13:34 WBC 51.0 H* RBC 3.77 L Hgb 11.2 L Hct 34.5 L Plt Count 120 L Gran % 97.3 H Lymph % (Auto) 1.9 L [place] % (Auto) 0.8 L Gran # 49.6 H Lymph # (Auto) 1.0 L VBG Lactic Acid 3.2 H Sodium Chloride 114 H Carbon Dioxide 17 L Anion Gap 7.0 L BUN 29 H Creatinine 1.4 H Glucose 152 H Calcium 8.0 L Phosphorus 2.6 L Magnesium GGT 106 H AST 46 H ALT 78 H Alkaline Phosphatase 202 H C-Reactive Protein Total Protein 5.0 L Albumin 2.2 L Albumin/Globulin Ratio 0.8 L Urine Occult Blood Ur Leukocyte Esterase Urine RBC Urine WBC Amorphous Crystals 04/07/18 04/07/18 04/07/18 08:19 05:15 05:15 WBC RBC Hgb Hct Plt Count Gran % Lymph % (Auto) [place] % (Auto) Gran # Lymph # (Auto) VBG Lactic Acid 5.9 H* Sodium Chloride Carbon Dioxide Anion Gap BUN Creatinine Glucose Calcium Phosphorus Magnesium 1.3 L GGT AST ALT Alkaline Phosphatase C-Reactive Protein Total Protein Albumin Albumin/Globulin Ratio Urine Occult Blood 0.2 A Ur Leukocyte Esterase 250 A Urine RBC 4 H Urine WBC 23 H Amorphous Crystals Mod A 04/07/18 04/07/18 05:15 05:15 WBC 43.5 H* RBC 3.81 L Hgb 11.4 L Hct 34.6 L Plt Count 129 L Gran % 97.2 H Lymph % (Auto) 1.1 L [place] % (Auto) Gran # 42.3 H Lymph # (Auto) 0.5 L VBG Lactic Acid Sodium 132 L Chloride Carbon Dioxide 12 L Anion Gap 18.0 H BUN 39 H Creatinine 2.7 H Glucose Calcium 8.0 L Phosphorus Magnesium GGT AST 86 H ALT 106 H Alkaline Phosphatase 258 H C-Reactive Protein 16.9 H Total Protein 5.1 L Albumin 2.5 L Albumin/Globulin Ratio Urine Occult Blood Ur Leukocyte Esterase Urine RBC Urine WBC Amorphous Crystals Meds: Medications Hydrocodone Bitart/Acetaminophen ([place] 7.5/325mg) 1 tab PO QID [facility] Last Admin: 04/08/18 08:29 Dose: Not Given Documented by: Albuterol Sulfate (Ventolin) 2.5 mg NEB Q2HP PRN PRN Reason: Shortness Of Breath Dextrose (Dextrose 50%) 0 ml IV UD PRN PRN Reason: Hypoglycemia Diagnostic Test (Pha) (Accu-Chek) 1 each FS ACHS [facility] Last Admin: 04/08/18 08:28 Dose: 1 each Documented by: Fluticasone Propionate (Flonase) 2 spray NS QDAY [facility] Last Admin: 04/08/18 08:28 Dose: Not Given Documented by: Glucose (Insta-Glucose) 15 gm PO PRN PRN PRN Reason: Hypoglycemia Heparin Sodium (Porcine) (Heparin) 5,000 unit SQ Q12 [facility] Last Admin: 04/07/18 20:45 Dose: 5,000 unit Documented by: Hydromorphone HCl (Dilaudid) 0.5 mg IV Q2HP PRN PRN Reason: PAIN LEVEL > 6 Ceftriaxone Sodium 2 gm/ (Dextrose) 50 mls @ 100 mls/hr IV DAILY [facility] Norepinephrine Bitartrate 16 (mg/ Sodium Chloride) 250 mls @ 9.38 mls/hr IV Q24H [facility]; Protocol Last Admin: 04/08/18 06:02 Dose: Not Given Documented by: Sodium Chloride (Sodium Chloride 0.9%) 250 mls @ 20 mls/hr IV .[id number] [facility] Last Admin: 04/08/18 04:00 Dose: Not Given Documented by: Insulin Human Lispro (Humalog) 0 unit SQ ACHS [facility]; Protocol Last Admin: 04/08/18 08:28 Dose: Not Given Documented by: Methocarbamol (Robaxin) 750 mg PO QID [facility] Last Admin: 04/08/18 08:21 Dose: 750 mg Documented by: Ondansetron HCl (Zofran) 4 mg IV Q4-6HP PRN PRN Reason: Nausea And Vomiting Simvastatin (Zocor) 20 mg PO DAILY [facility] Sodium Chloride (Saline Flush) 10 ml IV Q8 [facility] Last Admin: 04/08/18 05:46 Dose: 10 ml Documented by: Sodium Chloride (Saline Flush) 10 ml IV Q12 [facility] Last Admin: 04/07/18 20:58 Dose: Not Given Documented by: Medical - PN: A/P - Time Spent With Patient Total time spent is greater than 50% in coordination of care (as documented) at patient's floor/unit and/or counseling patient: - Narrative A/P Narrative: A/P Severe sepsis with shock/ urosepsis -resolving, on IV rocephin 2gms q24 hrs, urine cultures pending, but previous cultures were ecoli. sensitive to rocephin Hydronephrosis/Pyonephrosis - appreciate urology input and help, s/p stent placement, Lactic Acidosis -resolved Leucocytosis -worsening due to manipulation, monitor, clinically stable. HARVINDER -Creat improving, appreciate nephrology input, pt is not anuric, edmondson was initially placed incorrectly Thrombocytopenia -stable Abl lft -stable due to sepsis DM -ssi insulin for glucose control Hypothermia -resolved HTN -hold bp meds, for now. DVT hep sq Full code resume diet Xfer to tele status. Medical - PN: Qual - VTE Deep Vein Thrombosis/Pulmonary Embolism Present on Admission: No
[2018-04-08] MEDS ORDERED: HYDROCODONE/APAP 7.5/325MG TABLET PO PRN ×2 (09:28→13:54)
[2018-04-08] MEDS: HEPARIN 5,000 UNIT/ML VIAL SQ SCH ×2 (09:32→20:15)
[2018-04-08] MEDS ORDERED: DEXTROSE 50% 50 ML VIAL IV PRN (13:54)
[2018-04-08] MEDS ORDERED: ONDANSETRON 4 MG/2 ML VIAL IV PRN (13:54)
[2018-04-08] MEDS ORDERED: HYDROmorphone 2 MG/ML VIAL IV PRN (13:54)
[2018-04-08] MEDS ORDERED: DEXTROSE 31 GM ORAL.SUSP PO PRN (13:54)
[2018-04-08] MEDS ORDERED: ALBUTEROL SULFATE 2.5 MG/3 ML NEBULIZER NEB PRN (13:54)
[2018-04-09] MEDS: 0.9 % SODIUM CHLORIDE 250 ML IV SCH (04:10)
[2018-04-09] MEDS: 0.9 % SODIUM CHLORIDE 10 ML SYRINGE IV SCH ×5 (05:30→22:00)
[2018-04-09] MEDS ORDERED: NOREPINEPHRINE BITARTRATE 16 MG in 0.9 % SODIUM CHLORIDE 234 ML IV PRN ×2 (05:45→09:13)
[2018-04-09 05:49] LABS: Basophils # (Auto) 0 K/mcL (0.0-0.3); Basophils % (Auto) 0 % (0.0-2.0); Eosinophils # (Auto) 0.1 K/mcL (0.0-0.7); Eosinophils % (Auto) 0.2 % (0.0-7.0); Lymphocytes # (Auto) 2.2 K/mcL (1.5-4.8); Lymphocytes % (Auto) 6.3 % (15.5-49.0); Mean Corpuscular HGB Conc 32.9 g/dL (31.0-36.0); Monocytes # (Auto) 0.2 K/mcL (0.1-0.9); Monocytes % (Auto) 0.5 % (1.0-12.0); Platelet Count 114 K/mcL (140-440); RBC 3.81 M/mcL (4.00-5.20); Red Cell Distribution Width 14.3 % (11.5-14.5)
[2018-04-09 06:09] LABS: ALT/SGPT 146 U/l (0-40); Albumin 2.5 gm/dL (3.2-5.2); Albumin/Globulin Ratio 0.9 (1.0-2.3); Alkaline Phosphatase 241 U/L (39-117); Bilirubin,Direct < 0.2 mg/dL (0.0-0.3); Blood Urea Nitrogen 33 mg/dl (8-23); Gamma Glutamyl Transpeptidase 159 U/L (5-36); Uric Acid 6.3 mg/dL (2.5-8.0)
--- NOTE | 2018-04-09 06:23 | Nephrology Progress Note ---
Subjective Patient information: Note initiated : 04/09/18 at 6:20 am Patient: Giselle Brice 62 y/o F admitted on 04/07/18 for weakness, diarrhea, and dizziness. Chief Complaint: Weakness Principal diagnosis: Acute kidney injury Pertinent ROS: No nausea No abdominal pain No edema Objective - Vital Signs Vital signs: Vital Signs Temp Pulse Resp BP Pulse Ox 04/09/18 04:04 97.6 F 17 120/74 98 04/09/18 00:07 97.9 F 17 108/71 97 04/08/18 20:09 18 107/68 100 04/08/18 16:01 98.6 F 16 98/63 99 04/08/18 14:01 106/64 04/08/18 13:01 17 98/67 97 04/08/18 13:00 99 F 04/08/18 12:01 16 104/62 96 04/08/18 11:01 18 102/72 97 04/08/18 10:01 92/59 04/08/18 09:02 18 105/69 98 04/08/18 07:31 98.6 F 63 17 101/63 96 04/08/18 07:01 62 18 90/59 95 04/08/18 06:31 63 17 97/65 97 Intake and Output 04/08/18 04/09/18 04/09/18 21:59 05:59 13:59 Intake Total 720 360 Output Total 230 1075 Balance 490 -715 Intake: Oral 720 360 Output: Urine Catheter Amount 230 1075 Other: Meal Dinner Percent of Meal Consumed 50% Feeding Ability Independent Urine Appearance Clear Uretheral (Saini) Clear Urine Color Bright Yellow Uretheral (Saini) Bright Yellow Weight 127 lb 6.4 oz Intake & Output: Intake & Output 04/08/18 04/09/18 04/09/18 21:59 05:59 13:59 Intake Total 720 360 Output Total 230 1075 Balance 490 -715 Weight 127 lb 6.4 oz Intake: Oral 720 360 Output: Urine Catheter Amount 230 1075 Other: Meal Dinner Percent of Meal Consumed 50% Feeding Ability Independent Urine Appearance Clear Uretheral (Saini) Clear Urine Color Bright Yellow Uretheral (Saini) Bright Yellow - General Appearance General appearance: appears started age, fatigue EENT: mucous membranes moist Neck: supple Respiratory: clear Cardiology: no edema Gastrointestinal: no tenderness Integumentary: warm and dry Neurologic: no focal deficit, alert and oriented x3 Musculoskeletal: no deformities Psychiatric: mood/affect appropriate, cooperative - Lab 04/09/18 04:00 04/09/18 04:00 Most recent lab results Calcium 8.4 mg/dl (8.6-10.4) L 04/09/18 04:00 Phosphorus 2.8 mg/dL (2.7-4.5) 04/09/18 04:00 Magnesium 2.1 mg/dL (1.6-2.5) 04/09/18 04:00 Assessment and Plan (1) Acute kidney injury Giselle Brice is a 62-year-old female with hypertension, hyperlipidemia and diabetes mellitus type 2, admitted on 04/07/18 for septic shock. Acute kidney injury associated with septic shock due to acute gram negative german pyelonephritis and left obstructive uropathy with mild left hydronephrosis due to ureteropelvic junction stone with initial high anion gap metabolic acidosis and lactic acidosis and hyponatremia, present on arrival. Work up: Urinalysis on 04/07/18: Yellow, hazy, pH 5.0, SG 1.008, protein negative, occult blood 0.2, leukocyte esterase 250, urine WBC 23. CT Abdomen and Pelvis without contrast on 04/07/18: Multiple renal calculi surya aterally. 9 mm stone at the left ureteropelvic junction with mild left hydronephrosis. Pyonephrosis is possible. Pyelonephritis is also possible. Retroperitoneal and mesenteric edema. There is infiltration of the perinephric spaces bilaterally without discrete perinephric abscess. Saini catheter within the vagina. This should be repositioned. No intra-abdominal abscess. Progress: Left ureteral stent placed on 04/07/18. Blood and urine cultures growing gram negative bacilli. Last 24 hours: Urine output: 1925 ml reported in the past 24 hours. Serum creatinine decreased from 1.4 to 1.2 in the past 24 hours. Non anion gap metabolic acidosis, improved. Lactic acidosis resolved. Plan: No acute hemodialysis need. Nephrology will sign off. Status: Acute Priority: Medium (2) Metabolic acidosis Please see above Status: Acute Priority: Medium
--- NOTE | 2018-04-09 07:34 | General Surgery Progress Note ---
Surgical - Auxillary Note - Subjective Patient Information: Note initiated : 04/09/18 at 7:32 am Service Date, if different from initiated Date: [] Patient: Giselle Brice 62 y/o F admitted on 04/07/18 for weakness, diarrhea, and dizziness. Chief Complaint: left obstructive pyelonephrits Patient improved. WBC count improved. Discussed case with patient. Will treat with ESWL as outpatient. > 15 minutes spent with patient discussing ESWL and Stone.
[2018-04-09] MEDS: INSULIN LISPRO 1 UNIT/0.01 ML UNIT SQ SCH ×4 (07:49→21:03)
[2018-04-09] MEDS: HEPARIN 5,000 UNIT/ML VIAL SQ SCH ×2 (08:21→21:01)
--- NOTE | 2018-04-09 08:32 | Internal Med Progress Note ---
Medical - PN: Subj Patient information: Note initiated : 04/09/18 at 8:29 am Service Date, if different from initiated Date: [] Patient: Giselle Brice a 62 y/o F admitted on 04/07/18 for weakness, diarrhea, and dizziness. Chief Complaint: [] Interval history: Ms. Brice is a 62 year old F with h/o DM, HTN, HLD presents to the ER today for evaluation of weakness. The patient notes that she has been having foul smelling urine for quite a while now, over 4-6 weeks, the patient was being followed by her PCP in the outpatient clinic and had completed 1 round of antibiotics, I believe symptoms persisted and her abx was changed to cipro, she took the first dose yesterday evening. The patient does not know the first abx, thinks it started with a "T". The patient since last evening has not been feeling well, just very weak and tired, unable to ambulate from the bed to the bathroom, and she therefore decided to come to the ER for further eval The patient notes since 1 week she has been having left flank pain, intermittent, and worsening back spams, the patient notes it radiates up or down, no aggravating or relieving factors, she does not have the pain right now. The patient admits to having history of some kidney stones in the past. Patient notes that she has some nausea and has not been eating well but notes that she has been drinking her usual amounts of fluids. She also complains of increased cramps. She denies any headache sinus pain difficulty in swallowing changes in hearing changes in vision, denies any cough chest pain, she admits to having shortness of breath with minimal exertion, she admits to having 3 episodes of diarrhea since last night. She has not passed any urine. The patient denies any new joint pains skin rashes, denies any depression denies any other complaints On presentation to the hospital the patient was hypothermic 88.8, heart rate 89, blood pressure 64/42 ( lowest) respirations 18, saturating 90% on room air. Chest x-ray was negative. The patient's labs showed a WBC count of 40,500, hemoglobin 11.4, platelets 129. Sodium 132, potassium 3.4 chloride 102, bicarbonate 12.9 gap 18, creatinine 2.7 BUN 39 AST 106 ALT 86 alkaline phosphatase 258, lactic acid 5.9, albumin 2.5 Patient was given IV antibiotics blood cultures were sent no urine was available as the patient did not make any urine despite placing a Edmondson catheter, patient was given 2 L of IV fluids and then started on Levophed. Patient is being admitted to the hospital to the ICU patient's previous cultures reviewed, urine cultures were sent on 19 February which is growing E. coli pansensitive except tetracycline, 03/01 showed a mixed growth, and 04/06 is showing gram-negative bacillus for the speciation pending 04/08 Pt seen examined, no acute overnight issues s/p stent placement, pt doing well, off pressors WBC up today, but clinically pt is much better follow up cultures, on IV rocephin 2gms q24hrs xfer to tele status 04/09 Pt seen exmamined walking down hallway without any issues blood culture positive for gram neg bacillus, ecoli, likely same as urine, wbc trending down but still quite high await blood culture final sensitivity before discharge likely will be able to go on oral levofloxacin / cipro for total of 14 days. xfer to med surg status. Pertinent ROS: Denies headache, dizziness Denies chest pain, palpitations Denies cough or shortness of breath Denies abdominal pain, nausea or vomiting. - Constitutional Vitals: Vital Signs Temp Pulse Resp BP Pulse Ox 98.7 F 63 18 110/68 98 04/09/18 07:25 04/08/18 07:31 04/09/18 07:25 04/09/18 07:26 04/09/18 07:25 Period Temp Pulse Resp BP Sys/Fischer Pulse Ox Last 24 Hr 97.6 F-99 F 16-18 92-120/59-74 96-100 Intake and Output 04/08/18 04/09/18 04/09/18 21:59 05:59 13:59 Intake Total 720 360 610 Output Total 230 1075 Balance 490 -715 610 Weight 127 lb 6.4 oz Intake & Output: Intake & Output 04/08/18 04/09/18 04/09/18 21:59 05:59 13:59 Intake Total 720 360 610 Output Total 230 1075 Balance 490 -715 610 Weight 127 lb 6.4 oz Intake: IV 250 Oral 720 360 360 Output: Urine Catheter Amount 230 1075 Other: Meal Dinner Breakfast Percent of Meal Consumed 50% 75% Feeding Ability Independent Independent Urine Appearance Clear Uretheral (Edmondson) Clear Urine Color Bright Yellow Uretheral (Edmondson) Bright Yellow Exam: Constitutional; Afebrile, cooperative, alert, not in distress. Respiratory system: Air Entry equal on both sides, No crackles or wheezing, no rhonchi. CVS- Rate rhythm regular, S1,S2 heard, no gallop, no rub. Abdomen- Soft nontender abdomen, no organomegaly, no tenderness, no guarding or rigidity, [employer]- AOOx3, moving all extremities, no gross focal deficit noted. Medical - PN: Obj Da - Labs CBC & Chem 7: 04/09/18 04:00 04/09/18 04:00 Labs: Abnormal Lab Results 04/09/18 04/09/18 04/08/18 04:00 04:00 04:00 WBC 34.4 H* RBC 3.81 L Hgb 11.4 L Hct 34.7 L Plt Count 114 L Gran % 93.0 H Lymph % (Auto) 6.3 L Clare % (Auto) 0.5 L Gran # 32.0 H Lymph # (Auto) VBG Lactic Acid Sodium Chloride 112 H 114 H Carbon Dioxide 20 L 17 L Anion Gap 7.0 L BUN 33 H 29 H Creatinine 1.2 H 1.4 H Glucose 152 H Calcium 8.4 L 8.0 L Phosphorus 2.6 L Magnesium GGT 159 H 106 H AST 93 H 46 H ALT 146 H 78 H Alkaline Phosphatase 241 H 202 H C-Reactive Protein Total Protein 5.2 L 5.0 L Albumin 2.5 L 2.2 L Albumin/Globulin Ratio 0.9 L 0.8 L Triglycerides 187 H Urine Occult Blood Ur Leukocyte Esterase Urine RBC Urine WBC Amorphous Crystals 04/08/18 04/07/18 04/07/18 04:00 13:34 08:19 WBC 51.0 H* RBC 3.77 L Hgb 11.2 L Hct 34.5 L Plt Count 120 L Gran % 97.3 H Lymph % (Auto) 1.9 L Clare % (Auto) 0.8 L Gran # 49.6 H Lymph # (Auto) 1.0 L VBG Lactic Acid 3.2 H Sodium Chloride Carbon Dioxide Anion Gap BUN Creatinine Glucose Calcium Phosphorus Magnesium GGT AST ALT Alkaline Phosphatase C-Reactive Protein Total Protein Albumin Albumin/Globulin Ratio Triglycerides Urine Occult Blood 0.2 A Ur Leukocyte Esterase 250 A Urine RBC 4 H Urine WBC 23 H Amorphous Crystals Mod A 04/07/18 04/07/18 04/07/18 05:15 05:15 05:15 WBC RBC Hgb Hct Plt Count Gran % Lymph % (Auto) Clare % (Auto) Gran # Lymph # (Auto) VBG Lactic Acid 5.9 H* Sodium 132 L Chloride Carbon Dioxide 12 L Anion Gap 18.0 H BUN 39 H Creatinine 2.7 H Glucose Calcium 8.0 L Phosphorus Magnesium 1.3 L GGT AST 86 H ALT 106 H Alkaline Phosphatase 258 H C-Reactive Protein 16.9 H Total Protein 5.1 L Albumin 2.5 L Albumin/Globulin Ratio Triglycerides Urine Occult Blood Ur Leukocyte Esterase Urine RBC Urine WBC Amorphous Crystals 04/07/18 05:15 WBC 43.5 H* RBC 3.81 L Hgb 11.4 L Hct 34.6 L Plt Count 129 L Gran % 97.2 H Lymph % (Auto) 1.1 L Clare % (Auto) Gran # 42.3 H Lymph # (Auto) 0.5 L VBG Lactic Acid Sodium Chloride Carbon Dioxide Anion Gap BUN Creatinine Glucose Calcium Phosphorus Magnesium GGT AST ALT Alkaline Phosphatase C-Reactive Protein Total Protein Albumin Albumin/Globulin Ratio Triglycerides Urine Occult Blood Ur Leukocyte Esterase Urine RBC Urine WBC Amorphous Crystals Meds: Medications Hydrocodone Bitart/Acetaminophen ([place] 7.5/325mg) 1 tab PO Q6HP PRN PRN Reason: PAIN LEVEL 3-6 Albuterol Sulfate (Ventolin) 2.5 mg NEB Q2HP PRN PRN Reason: Shortness Of Breath Dextrose (Dextrose 50%) 0 ml IV UD PRN PRN Reason: Hypoglycemia Diagnostic Test (Pha) (Accu-Chek) 1 each FS ACHS [facility] Last Admin: 04/09/18 07:48 Dose: 1 each Documented by: Fluticasone Propionate (Flonase) 2 spray NS QDAY [facility] Glucose (Insta-Glucose) 15 gm PO PRN PRN PRN Reason: Hypoglycemia Heparin Sodium (Porcine) (Heparin) 5,000 unit SQ Q12 [facility] Last Admin: 04/09/18 08:21 Dose: 5,000 unit Documented by: Hydromorphone HCl (Dilaudid) 0.5 mg IV Q2HP PRN PRN Reason: PAIN LEVEL > 6 Ceftriaxone Sodium 2 gm/ (Dextrose) 50 mls @ 100 mls/hr IV DAILY [facility] Last Admin: 04/09/18 08:21 Dose: 100 mls/hr Documented by: Norepinephrine Bitartrate 16 (mg/ Sodium Chloride) 250 mls @ 9.38 mls/hr IV Q24HP PRN; Protocol PRN Reason: TITRATE TO KEEP MAP > 65 Sodium Chloride (Sodium Chloride 0.9%) 250 mls @ 20 mls/hr IV .[id number] [facility] Last Admin: 04/09/18 04:10 Dose: Not Given Documented by: Insulin Human Lispro (Humalog) 0 unit SQ ACHS [facility]; Protocol Last Admin: 04/09/18 07:49 Dose: Not Given Documented by: Methocarbamol (Robaxin) 750 mg PO QID [facility] Last Admin: 04/08/18 20:16 Dose: Not Given Documented by: Ondansetron HCl (Zofran) 4 mg IV Q4-6HP PRN PRN Reason: Nausea And Vomiting Simvastatin (Zocor) 20 mg PO HS [facility] Last Admin: 04/08/18 20:18 Dose: 20 mg Documented by: Sodium Chloride (Saline Flush) 10 ml IV Q8 [facility] Last Admin: 04/09/18 05:30 Dose: 10 ml Documented by: Sodium Chloride (Saline Flush) 10 ml IV Q12 [facility] Last Admin: 04/09/18 08:22 Dose: 10 ml Documented by: Medical - PN: A/P - Time Spent With Patient Total time spent is greater than 50% in coordination of care (as documented) at patient's floor/unit and/or counseling patient: - Narrative A/P Narrative: A/P Severe sepsis with shock/ urosepsis/ Gram negative bactermia -resolving, on IV rocephin 2gms q24 hrs, urine cultures pending, but previous cultures were ecoli. sensitive to rocephin -await sensitivity to Blood culture, should be able to go on oral levoflox / cipro for total of 14 days. Hydronephrosis/Pyonephrosis - appreciate urology input and help, s/p stent placement, -outpatient follow up Lactic Acidosis -resolved Leucocytosis -improving now. HARVINDER -Creat improving, appreciate nephrology input, pt is not anuric, edmondson was initially placed incorrectly -improving renal function. creat 1.2 today Thrombocytopenia -stable Abl lft -stable due to sepsis/ slightly worse today, monitor. , could be rocephin too. DM -ssi insulin for glucose control Hypothermia -resolved HTN -hold bp meds, for now. DVT hep sq Full code resume diet Xfer to med surg Medical - PN: Qual - VTE Deep Vein Thrombosis/Pulmonary Embolism Present on Admission: No
--- NOTE | 2018-04-09 08:41 | Operative Note ---
DATE OF OPERATION: 04/07/2018 PREOPERATIVE DIAGNOSIS: Left obstructive pyelonephritis. POSTOPERATIVE DIAGNOSIS: Left obstructive pyelonephritis. PROCEDURE: Left ureteral stent placement. SURGEON: Moose Hu MD INDICATION: The patient is a 62-year-old lady who has a high-grade obstruction of the kidney with pyelonephritis. Her white count is 43,000. She presents now for drainage. PROCEDURE IN DETAIL: The patient was identified and consent was signed. She was given general anesthesia, placed in lithotomy position, prepped and draped in a standard fashion. Cystourethroscopy showed normal-appearing urethra. Orifices were in their normal position. No tumors or masses were seen. A wire was passed up into the kidney and we were able to bypass the stone without difficulty. A 6 x 24 stent was then placed and drained pus from the kidney. The stent was in good position. She was then awoken and taken to recovery room. A Saini catheter had been placed and she tolerated the procedure well. RZ:luca Job ID: [id number] Doc ID: [id number] Moose Hu MD
[2018-04-09] MEDS ORDERED: FLUTICASONE PROPIONATE SPRAY.NAS NS SCH (09:00)
[2018-04-09] MEDS ORDERED: cefTRIAXone 2 GM in DEXTROSE 5% IN WATER 50 ML IV SCH (09:00)
[2018-04-09] MEDS: METHOCARBAMOL 750 MG TABLET PO SCH ×4 (09:02→20:53)
[2018-04-09] MEDS ORDERED: ONDANSETRON 4 MG/2 ML VIAL IV PRN (09:13)
[2018-04-09] MEDS ORDERED: HYDROmorphone 2 MG/ML VIAL IV PRN (09:13)
[2018-04-09] MEDS ORDERED: DEXTROSE 31 GM ORAL.SUSP PO PRN (09:13)
[2018-04-09] MEDS ORDERED: 0.9 % SODIUM CHLORIDE 250 ML IV SCH (09:13)
[2018-04-09] MEDS ORDERED: HYDROCODONE/APAP 7.5/325MG TABLET PO PRN (09:13)
[2018-04-09] MEDS ORDERED: DEXTROSE 50% 50 ML VIAL IV PRN (09:13)
[2018-04-09] MEDS ORDERED: ALBUTEROL SULFATE 2.5 MG/3 ML NEBULIZER NEB PRN (09:13)
[2018-04-09] MEDS ORDERED: 0.9 % SODIUM CHLORIDE 10 ML SYRINGE IV PRN (10:15)
--- NOTE | 2018-04-09 13:38 | Internal Med Progress Note ---
Medical - PN: Subj Patient information: Note initiated : 04/09/18 at 1:32 pm Service Date, if different from initiated Date: [] Patient: Giselle Brice a 62 y/o F admitted on 04/07/18 for weakness, diarrhea, and dizziness. Chief Complaint: [] Interval history: Ms. Brice is a 62 year old F with h/o DM, HTN, HLD presents to the ER today for evaluation of weakness. The patient notes that she has been having foul smelling urine for quite a while now, over 4-6 weeks, the patient was being followed by her PCP in the outpatient clinic and had completed 1 round of antibiotics, I believe symptoms persisted and her abx was changed to cipro, she took the first dose yesterday evening. The patient does not know the first abx, thinks it started with a "T". The patient since last evening has not been feeling well, just very weak and tired, unable to ambulate from the bed to the bathroom, and she therefore decided to come to the ER for further eval The patient notes since 1 week she has been having left flank pain, intermittent, and worsening back spams, the patient notes it radiates up or down, no aggravating or relieving factors, she does not have the pain right now. The patient admits to having history of some kidney stones in the past. Patient notes that she has some nausea and has not been eating well but notes that she has been drinking her usual amounts of fluids. She also complains of increased cramps. She denies any headache sinus pain difficulty in swallowing changes in hearing changes in vision, denies any cough chest pain, she admits to having shortness of breath with minimal exertion, she admits to having 3 episodes of diarrhea since last night. She has not passed any urine. The patient denies any new joint pains skin rashes, denies any depression denies any other complaints On presentation to the hospital the patient was hypothermic 88.8, heart rate 89, blood pressure 64/42 ( lowest) respirations 18, saturating 90% on room air. Chest x-ray was negative. The patient's labs showed a WBC count of 40,500, hemoglobin 11.4, platelets 129. Sodium 132, potassium 3.4 chloride 102, bicarbonate 12.9 gap 18, creatinine 2.7 BUN 39 AST 106 ALT 86 alkaline phosphatase 258, lactic acid 5.9, albumin 2.5 Patient was given IV antibiotics blood cultures were sent no urine was available as the patient did not make any urine despite placing a Saini catheter, patient was given 2 L of IV fluids and then started on Levophed. Patient is being admitted to the hospital to the ICU patient's previous cultures reviewed, urine cultures were sent on 19 February which is growing E. coli pansensitive except tetracycline, 03/01 showed a mixed growth, and 04/06 is showing gram-negative bacillus for the speciation pending 04/08 Pt seen examined, no acute overnight issues s/p stent placement, pt doing well, off pressors WBC up today, but clinically pt is much better follow up cultures, on IV rocephin 2gms q24hrs xfer to tele status 04/09 Pt seen exmamined walking down hallway without any issues blood culture positive for gram neg bacillus, ecoli, likely same as urine, wbc trending down but still quite high await blood culture final sensitivity before discharge likely will be able to go on oral levofloxacin / cipro for total of 14 days. xfer to med surg status. 04/10 - Constitutional Vitals: Vital Signs Temp Pulse Resp BP Pulse Ox 98.1 F 89 18 112/65 98 04/09/18 12:07 04/09/18 12:07 04/09/18 12:07 04/09/18 12:07 04/09/18 12:07 Period Temp Pulse Resp BP Sys/Fischer Pulse Ox Last 24 Hr 97.6 F-98.7 F 67-89 16-18 98-120/63-74 97-100 Intake and Output 04/08/18 04/09/18 04/09/18 21:59 05:59 13:59 Intake Total 409 662 1525 Output Total 230 1075 500 Balance 490 -715 710 Weight 57.788 kg Intake & Output: Intake & Output 04/08/18 04/09/18 04/09/18 21:59 05:59 13:59 Intake Total 475 749 4640 Output Total 230 1075 500 Balance 490 -715 710 Weight 57.788 kg Intake: IV 300 Rocephin 2 gm In Dextrose 5% in 50 Water 50 ml @ 100 mls/hr IV DAILY [facility] Rx#:[id number] Oral 720 360 910 Output: Urine Catheter Amount 230 1075 500 Other: Meal Dinner Lunch Percent of Meal Consumed 50% 100% Feeding Ability Independent Independent Urine Appearance Clear Clear Uretheral (Saini) Clear Clear Urine Color Bright Yellow Pale Uretheral (Saini) Bright Yellow Bright Yellow Urine Odor Normal # Voids 1 Exam: General: Alert, Awake, No acute Distress Eyes/N/T: EOMI, Head/Neck: neck supple, CV: RRR, No murmurs, Pulm: Clear b/l, no wheezing/rhonchi/rales Abd: soft, nontender, +BS x4 Ext: no clubbing/cyanosis/edema Neuro: Alert, no focal deficits, moves all extremities, Skin: warm/dry Medical - PN: Obj Da - Labs CBC & Chem 7: 04/09/18 04:00 04/09/18 04:00 Labs: Abnormal Lab Results 04/09/18 04/09/18 04/08/18 04:00 04:00 04:00 WBC 34.4 H* RBC 3.81 L Hgb 11.4 L Hct 34.7 L Plt Count 114 L Gran % 93.0 H Lymph % (Auto) 6.3 L Curry % (Auto) 0.5 L Gran # 32.0 H Lymph # (Auto) VBG Lactic Acid Sodium Chloride 112 H 114 H Carbon Dioxide 20 L 17 L Anion Gap 7.0 L BUN 33 H 29 H Creatinine 1.2 H 1.4 H Glucose 152 H Calcium 8.4 L 8.0 L Phosphorus 2.6 L Magnesium GGT 159 H 106 H AST 93 H 46 H ALT 146 H 78 H Alkaline Phosphatase 241 H 202 H C-Reactive Protein Total Protein 5.2 L 5.0 L Albumin 2.5 L 2.2 L Albumin/Globulin Ratio 0.9 L 0.8 L Triglycerides 187 H Urine Occult Blood Ur Leukocyte Esterase Urine RBC Urine WBC Amorphous Crystals 04/08/18 04/07/18 04/07/18 04:00 13:34 08:19 WBC 51.0 H* RBC 3.77 L Hgb 11.2 L Hct 34.5 L Plt Count 120 L Gran % 97.3 H Lymph % (Auto) 1.9 L Curry % (Auto) 0.8 L Gran # 49.6 H Lymph # (Auto) 1.0 L VBG Lactic Acid 3.2 H Sodium Chloride Carbon Dioxide Anion Gap BUN Creatinine Glucose Calcium Phosphorus Magnesium GGT AST ALT Alkaline Phosphatase C-Reactive Protein Total Protein Albumin Albumin/Globulin Ratio Triglycerides Urine Occult Blood 0.2 A Ur Leukocyte Esterase 250 A Urine RBC 4 H Urine WBC 23 H Amorphous Crystals Mod A 04/07/18 04/07/18 04/07/18 05:15 05:15 05:15 WBC RBC Hgb Hct Plt Count Gran % Lymph % (Auto) Curry % (Auto) Gran # Lymph # (Auto) VBG Lactic Acid 5.9 H* Sodium 132 L Chloride Carbon Dioxide 12 L Anion Gap 18.0 H BUN 39 H Creatinine 2.7 H Glucose Calcium 8.0 L Phosphorus Magnesium 1.3 L GGT AST 86 H ALT 106 H Alkaline Phosphatase 258 H C-Reactive Protein 16.9 H Total Protein 5.1 L Albumin 2.5 L Albumin/Globulin Ratio Triglycerides Urine Occult Blood Ur Leukocyte Esterase Urine RBC Urine WBC Amorphous Crystals 04/07/18 05:15 WBC 43.5 H* RBC 3.81 L Hgb 11.4 L Hct 34.6 L Plt Count 129 L Gran % 97.2 H Lymph % (Auto) 1.1 L Curry % (Auto) Gran # 42.3 H Lymph # (Auto) 0.5 L VBG Lactic Acid Sodium Chloride Carbon Dioxide Anion Gap BUN Creatinine Glucose Calcium Phosphorus Magnesium GGT AST ALT Alkaline Phosphatase C-Reactive Protein Total Protein Albumin Albumin/Globulin Ratio Triglycerides Urine Occult Blood Ur Leukocyte Esterase Urine RBC Urine WBC Amorphous Crystals Meds: Medications Hydrocodone Bitart/Acetaminophen ([place] 7.5/325mg) 1 tab PO Q6HP PRN PRN Reason: PAIN LEVEL 3-6 Albuterol Sulfate (Ventolin) 2.5 mg NEB Q2HP PRN PRN Reason: Shortness Of Breath Dextrose (Dextrose 50%) 0 ml IV UD PRN PRN Reason: Hypoglycemia Diagnostic Test (Pha) (Accu-Chek) 1 each FS ACHS [facility] Last Admin: 04/09/18 11:08 Dose: 1 each Documented by: Fluticasone Propionate (Flonase) 2 spray NS DAILY [facility] Glucose (Insta-Glucose) 15 gm PO PRN PRN PRN Reason: Hypoglycemia Heparin Sodium (Porcine) (Heparin) 5,000 unit SQ Q12 [facility] Hydromorphone HCl (Dilaudid) 0.5 mg IV Q2HP PRN PRN Reason: PAIN LEVEL > 6 Ceftriaxone Sodium 2 gm/ (Dextrose) 50 mls @ 100 mls/hr IV DAILY [facility] Norepinephrine Bitartrate 16 (mg/ Sodium Chloride) 250 mls @ 9.38 mls/hr IV Q24HP PRN; Protocol PRN Reason: TITRATE TO KEEP MAP > 65 Insulin Human Lispro (Humalog) 0 unit SQ ACHS [facility]; Protocol Last Admin: 04/09/18 11:10 Dose: Not Given Documented by: Methocarbamol (Robaxin) 750 mg PO QID [facility] Last Admin: 04/09/18 13:15 Dose: Not Given Documented by: Ondansetron HCl (Zofran) 4 mg IV Q4-6HP PRN PRN Reason: Nausea And Vomiting Simvastatin (Zocor) 20 mg PO HS [facility] Sodium Chloride (Saline Flush) 10 ml IV Q8 [facility] Sodium Chloride (Saline Flush) 10 ml IV Q12 [facility] Sodium Chloride (Saline Flush) 10 ml IV UD PRN PRN Reason: FLUSH Medical - PN: A/P - Time Spent With Patient Total time spent is greater than 50% in coordination of care (as documented) at patient's floor/unit and/or counseling patient: - Narrative A/P Narrative: A: *Severe sepsis with shock/ Left pyelonephritis / GNB Bactermia: resolving -Lactic acidosis/leukocytosis improved *Hydronephrosis/Pyonephrosis: s/p stent placement *HARVINDER on likely CKD III: improving *Thrombocytopenia: Stable *Mild transaminitis: *DM *Hypothermia: Resolved *HTN: * * P: -rocephin 2gms q24 hrs, urine cultures pending, but previous cultures were ecoli. sensitive to rocephin -await sensitivity to Blood culture, should be able to go on oral levoflox / cipro for total of 14 days. - appreciate urology input and help, s/p stent placement, outpatient follow up -peripheral smear pending - -BP meds held for now -SSI - -ppx: heparin Full Code Medical - PN: Qual - VTE Deep Vein Thrombosis/Pulmonary Embolism Present on Admission: No
--- NOTE | 2018-04-09 13:59 | Discharge Summary ---
Medical - DS: Prov Patient information: Note initiated : 04/09/18 at 1:55 pm Service Date, if different from initiated Date: [] Patient: Giselle Brice 62 y/o F admitted on 04/07/18 for weakness, diarrhea, and dizziness. Chief Complaint: [] Date of admission: 04/07/18 08:45 Discharge date: 04/10/18 Primary care physician: Sveta Mahoney Consults: 04/07/18 Consult to Physician [CONS] Stat Comment: Consulting Provider: Frances Crump Reason For Exam: Physician to Consult 04/07/18 08:45 Consult to Physician [CONS] Stat Comment: Anuria, renal failure Consulting Provider: Jona Rust Reason For Exam: Physician to Consult Medical - DS: Meds - Discharge Medications Prescriptions: Levofloxacin [Levaquin] 750 mg PO Q48H #6 tab Active and Home Medications: Home Medications coenzyme Q10 200 mg capsule 200 mg PO QDAY cap 01/05/15 [History Confirmed 04/07/18 Last Taken Unknown] fluticasone 50 mcg/actuation nasal spray,suspension 2 spray INTRANASAL QDAY g 01/05/15 [History Confirmed 04/07/18 Last Taken Unknown] hydrocodone 7.5 mg-acetaminophen 325 mg tablet 1 tab PO Q6H PRN tab 01/05/15 [History Confirmed 04/08/18 Last Taken Unknown] lisinopril 5 mg tablet 5 mg PO QDAY 01/05/15 [History Confirmed 04/07/18 Last Taken Unknown] methocarbamol 750 mg tablet 750 mg PO QID PRN tab 01/05/15 [History Confirmed 04/07/18 Last Taken Unknown] pravastatin 40 mg tablet 40 mg PO HS tab 01/05/15 [History Confirmed 04/08/18 Last Taken Unknown] sitagliptin 50 mg-metformin 500 mg tablet 1 tab PO BID 01/05/15 [History Confir med 04/07/18 Last Taken Unknown] Albuterol Sulfate [Proair Hfa] 1 puff IH Q4-6HP PRN 04/08/18 [History Confirmed 04/08/18 Last Taken 04/05/18] Etodolac [Lodine] 1 tab PO DAILY PRN 04/08/18 [History Confirmed 04/08/18 Last Taken Unknown] Ibuprofen [Advil] 200 mg PO Q6H PRN 04/08/18 [History Confirmed 04/08/18 Last Taken Unknown] Home Medications coenzyme Q10 200 mg capsule 200 mg PO QDAY cap 01/05/15 [History Confirmed 04/07/18 Last Taken Unknown] fluticasone 50 mcg/actuation nasal spray,suspension 2 spray INTRANASAL QDAY g 01/05/15 [History Confirmed 04/07/18 Last Taken Unknown] hydrocodone 7.5 mg-acetaminophen 325 mg tablet 1 tab PO Q6H PRN tab 01/05/15 [History Confirmed 04/08/18 Last Taken Unknown] lisinopril 5 mg tablet 5 mg PO QDAY 01/05/15 [History Confirmed 04/07/18 Last Taken Unknown] methocarbamol 750 mg tablet 750 mg PO QID PRN tab 01/05/15 [History Confirmed 04/07/18 Last Taken Unknown] pravastatin 40 mg tablet 40 mg PO HS tab 01/05/15 [History Confirmed 04/08/18 Last Taken Unknown] sitagliptin 50 mg-metformin 500 mg tablet 1 tab PO BID 01/05/15 [History Confirmed 04/07/18 Last Taken Unknown] Albuterol Sulfate [Proair Hfa] 1 puff IH Q4-6HP PRN 04/08/18 [History Confirmed 04/08/18 Last Taken 04/05/18] Levofloxacin [Levaquin] 750 mg PO Q48H #6 tab 04/09/18 [Rx Last Taken Unknown] Medical - DS: Hosp Hospital course: Ms. Brice is a 62 year old F with h/o DM, HTN, HLD presents to the ER today for evaluation of weakness. The patient notes that she has been having foul smelling urine for quite a while now, over 4-6 weeks, the patient was being followed by her PCP in the outpatient clinic and had completed 1 round of antibiotics, I believe symptoms persisted and her abx was changed to cipro, she took the first dose yesterday evening. The patient does not know the first abx, thinks it started with a "T". The patient since last evening has not been feeling well, just very weak and tired, unable to ambulate from the bed to the bathroom, and she therefore decided to come to the ER for further eval The patient notes since 1 week she has been having left flank pain, intermittent, and worsening back spams, the patient notes it radiates up or down, no aggravating or relieving factors, she does not have the pain right now. The patient admits to having history of some kidney stones in the past. Patient notes that she has some nausea and has not been eating well but notes that she has been drinking her usual amounts of fluids. She also complains of increased cramps. She denies any headache sinus pain difficulty in swallowing changes in hearing changes in vision, denies any cough chest pain, she admits to having shortness of breath with minimal exertion, she admits to having 3 episodes of diarrhea since last night. She has not passed any urine. The patient denies any new joint pains skin rashes, denies any depression denies any other complaints On presentation to the hospital the patient was hypothermic 88.8, heart rate 89, blood pressure 64/42 ( lowest) respirations 18, saturating 90% on room air. Chest x-ray was negative. The patient's labs showed a WBC count of 40,500, hemoglobin 11.4, platelets 129. Sodium 132, potassium 3.4 chloride 102, bicarbonate 12.9 gap 18, creatinine 2.7 BUN 39 AST 106 ALT 86 alkaline phosphatase 258, lactic acid 5.9, albumin 2.5 Patient was given IV antibiotics blood cultures were sent no urine was available as the patient did not make any urine despite placing a Saini catheter, patient was given 2 L of IV fluids and then started on Levophed. Patient is being admitted to the hospital to the ICU patient's previous cultures reviewed, urine cultures were sent on 19 February which is growing E. coli pansensitive except tetracycline, 03/01 showed a mixed growth, and 04/06 is showing gram-negative bacillus for the speciation pending 04/08 Pt seen examined, no acute overnight issues s/p stent placement, pt doing well, off pressors WBC up today, but clinically pt is much better follow up cultures, on IV rocephin 2gms q24hrs xfer to tele status 04/09 Pt seen exmamined walking down hallway without any issues blood culture positive for gram neg bacillus, ecoli, likely same as urine, wbc trending down but still quite high await blood culture final sensitivity before discharge likely will be able to go on oral levofloxacin / cipro for total of 14 days. xfer to med surg status. 04/10 Doing well ready for discharge in stable for discharge Discharge diagnosis: Pyelonephritis septic shock gram-negative bacillus bacteremia Secondary discharge diagnosis: Hydronephrosis acute kidney injury thrombocytopenia mild transaminitis diabetes hypertension - Time Spent with Patient Total time spent providing and/or coordinating discharge services: Greater than 30 minutes Medical - DS: Exam - Constitutional Vitals: Vital Signs Temp Pulse Resp BP BP Pulse Ox 04/09/18 12:07 98.1 F 89 18 112/65 98 04/09/18 11:00 67 18 97 04/09/18 08:00 98 04/09/18 07:26 110/68 04/09/18 07:25 98.7 F 18 110/68 98 04/09/18 04:04 97.6 F 17 120/74 98 04/09/18 00:07 97.9 F 17 108/71 97 04/08/18 20:09 18 107/68 100 04/08/18 16:01 98.6 F 16 98/63 99 04/08/18 14:01 106/64 Intake and Output 04/08/18 04/09/18 04/09/18 21:59 05:59 13:59 Intake Total 924 477 9741 Output Total 230 1075 500 Balance 490 -994 609 Intake: IV 300 Rocephin 2 gm In Dextrose 5% in 50 Water 50 ml @ 100 mls/hr IV DAILY [facility] Rx#:[id number] Oral 720 360 910 Output: Urine Catheter Amount 230 1075 500 Other: Meal Dinner Lunch Percent of Meal Consumed 50% 100% Feeding Ability Independent Independent Urine Appearance Clear Clear Uretheral (Saini) Clear Clear Urine Color Bright Yellow Pale Uretheral (Saini) Bright Yellow Bright Yellow Urine Odor Normal # Voids 1 Weight 57.788 kg 57.788 kg Patient Weight 04/10/18 05:59 Weight 57.788 kg Medical - DS: Data Labs on day of discharge: Labs from last 24 hours 04/09/18 04/09/18 04/09/18 04:00 04:00 04:00 WBC 34.4 H* RBC 3.81 L Hgb 11.4 L Hct 34.7 L MCV 91.0 MCH 29.9 MCHC 32.9 RDW 14.3 Plt Count 114 L MPV 9.1 Gran % 93.0 H Lymph % (Auto) 6.3 L Eaton % (Auto) 0.5 L Eos % (Auto) 0.2 Baso % (Auto) 0 Gran # 32.0 H Lymph # (Auto) 2.2 Eaton # (Auto) 0.2 Eos # (Auto) 0.1 Baso # (Auto) 0 Differential Comment Smear Path Review Pending Sodium 140 Potassium 5.0 Chloride 112 H Carbon Dioxide 20 L Anion Gap 8.0 BUN 33 H Creatinine 1.2 H GFR Calculation 48 Glucose 82 Uric Acid 6.3 Calcium 8.4 L Phosphorus 2.8 Magnesium 2.1 Total Bilirubin 0.2 Direct Bilirubin < 0.2 GGT 159 H AST 93 H ALT 146 H Alkaline Phosphatase 241 H Lactate Dehydrogenase 185 Total Protein 5.2 L Albumin 2.5 L Globulin 2.7 Albumin/Globulin Ratio 0.9 L Triglycerides 187 H Preliminary micro results at discharge 04/07/18 05:15 Blood Culture - Preliminary Blood 04/07/18 05:23 Blood Culture - Preliminary Blood Gram negative bacillus Medical - DS: A/P - Patient/Caregiver Discharge Instructions Activity: increase activity as tolerated Diet: Consistent Carbohydrate Prescriptions: Levofloxacin [Levaquin] 750 mg PO Q48H #6 tab - Follow up Plan Follow up with: Sveta Mahoney ARNP [Primary Care Provider] - Moose Hu MD [Physician] - 04/23/18 1:30 pm Disposition: Home, Self-Care Prognosis: Fair Rehab Potential: Fair Medical - DS: Qual - VTE Deep Vein Thrombosis/Pulmonary Embolism Present on Admission: No
[2018-04-09] MEDS ORDERED: SIMVASTATIN 20 MG TABLET PO SCH (21:00)
[2018-04-10 05:40] LABS: Basophils # (Auto) 0 K/mcL (0.0-0.3); Basophils % (Auto) 0.3 % (0.0-2.0); Eosinophils # (Auto) 0.1 K/mcL (0.0-0.7); Eosinophils % (Auto) 0.8 % (0.0-7.0); Granulocytes % (Auto) 81.8 % (38.0-78.0); Lymphocytes # (Auto) 2.6 K/mcL (1.5-4.8); Lymphocytes % (Auto) 14.4 % (15.5-49.0); Mean Cell Volume 90.4 fL (80.0-100.0); Mean Corpuscular HGB Conc 32.5 g/dL (31.0-36.0); Monocytes # (Auto) 0.5 K/mcL (0.1-0.9); Monocytes % (Auto) 2.7 % (1.0-12.0); Platelet Count 124 K/mcL (140-440); RBC 3.83 M/mcL (4.00-5.20); Red Cell Distribution Width 13.9 % (11.5-14.5)
[2018-04-10 06:05] LABS: ALT/SGPT 141 U/l (0-40); Albumin 2.7 gm/dL (3.2-5.2); Alkaline Phosphatase 278 U/L (39-117); Bilirubin,Direct < 0.2 mg/dL (0.0-0.3); Blood Urea Nitrogen 29 mg/dl (8-23); Gamma Glutamyl Transpeptidase 278 U/L (5-36)
--- NOTE | 2018-04-10 06:48 | Internal Med Progress Note ---
Medical - PN: Subj Patient information: Note initiated : 04/10/18 at 6:46 am Service Date, if different from initiated Date: [] Patient: Giselle Brice a 62 y/o F admitted on 04/07/18 for weakness, diarrhea, and dizziness. Chief Complaint: [] Interval history: Ms. Brice is a 62 year old F with h/o DM, HTN, HLD presents to the ER today for evaluation of weakness. The patient notes that she has been having foul smelling urine for quite a while now, over 4-6 weeks, the patient was being followed by her PCP in the outpatient clinic and had completed 1 round of antibiotics, I believe symptoms persisted and her abx was changed to cipro, she took the first dose yesterday evening. The patient does not know the first abx, thinks it started with a "T". The patient since last evening has not been feeling well, just very weak and tired, unable to ambulate from the bed to the bathroom, and she therefore decided to come to the ER for further eval The patient notes since 1 week she has been having left flank pain, intermittent, and worsening back spams, the patient notes it radiates up or down, no aggravating or relieving factors, she does not have the pain right now. The patient admits to having history of some kidney stones in the past. Patient notes that she has some nausea and has not been eating well but notes that she has been drinking her usual amounts of fluids. She also complains of increased cramps. She denies any headache sinus pain difficulty in swallowing changes in hearing changes in vision, denies any cough chest pain, she admits to having shortness of breath with minimal exertion, she admits to having 3 episodes of diarrhea since last night. She has not passed any urine. The patient denies any new joint pains skin rashes, denies any depression denies any other complaints On presentation to the hospital the patient was hypothermic 88.8, heart rate 89, blood pressure 64/42 ( lowest) respirations 18, saturating 90% on room air. Chest x-ray was negative. The patient's labs showed a WBC count of 40,500, hemoglobin 11.4, platelets 129. Sodium 132, potassium 3.4 chloride 102, bicarbonate 12.9 gap 18, creatinine 2.7 BUN 39 AST 106 ALT 86 alkaline phosphatase 258, lactic acid 5.9, albumin 2.5 Patient was given IV antibiotics blood cultures were sent no urine was available as the patient did not make any urine despite placing a Saini catheter, patient was given 2 L of IV fluids and then started on Levophed. Patient is being admitted to the hospital to the ICU patient's previous cultures reviewed, urine cultures were sent on 19 February which is growing E. coli pansensitive except tetracycline, 03/01 showed a mixed growth, and 04/06 is showing gram-negative bacillus for the speciation pending 04/08 Pt seen examined, no acute overnight issues s/p stent placement, pt doing well, off pressors WBC up today, but clinically pt is much better follow up cultures, on IV rocephin 2gms q24hrs xfer to tele status 04/09 Pt seen exmamined walking down hallway without any issues blood culture positive for gram neg bacillus, ecoli, likely same as urine, wbc trending down but still quite high await blood culture final sensitivity before discharge likely will be able to go on oral levofloxacin / cipro for total of 14 days. xfer to med surg status. 04/10 - Constitutional Vitals: Vital Signs Temp Pulse Resp BP Pulse Ox 98.2 F 71 12 124/71 97 04/10/18 03:42 04/10/18 03:42 04/10/18 03:42 04/10/18 03:42 04/10/18 03:42 Period Temp Pulse Resp BP Sys/Fischer Pulse Ox Last 24 Hr 97.8 F-98.7 F 67-91 12-18 110-132/65-78 95-98 Intake and Output 04/09/18 04/10/18 04/10/18 21:59 05:59 13:59 Intake Total 1040 200 Output Total 900 1500 Balance 140 -1300 Weight 58.967 kg Intake & Output: Intake & Output 04/09/18 04/10/18 04/10/18 21:59 05:59 13:59 Intake Total 1040 200 Output Total 900 1500 Balance 140 -1300 Weight 58.967 kg Intake: Oral 1040 200 Output: Void Amount 900 1500 Other: Meal Dinner Percent of Meal Consumed 100% Feeding Ability Independent Urine Appearance Clear Clear Urine Color Bright Yellow Straw Urine Odor Normal Normal # Voids 1 2 Exam: General: Alert, Awake, No acute Distress Eyes/N/T: EOMI, Head/Neck: neck supple, CV: RRR, No murmurs, Pulm: Clear b/l, no wheezing/rhonchi/rales Abd: soft, nontender, +BS x4 Ext: no clubbing/cyanosis/edema Neuro: Alert, no focal deficits, moves all extremities, Skin: warm/dry Medical - PN: Obj Da - Labs CBC & Chem 7: 04/10/18 04:25 04/10/18 04:25 Labs: Abnormal Lab Results 04/10/18 04/10/18 04/09/18 04:25 04:25 04:00 WBC 17.9 H RBC 3.83 L Hgb 11.3 L Hct 34.6 L Plt Count 124 L Gran % 81.8 H Lymph % (Auto) 14.4 L Amelia % (Auto) Gran # 14.6 H Lymph # (Auto) VBG Lactic Acid Chloride 111 H 112 H Carbon Dioxide 20 L Anion Gap BUN 29 H 33 H Creatinine 1.2 H Glucose Calcium 8.4 L 8.4 L Phosphorus Magnesium GGT 278 H 159 H AST 69 H 93 H ALT 141 H 146 H Alkaline Phosphatase 278 H 241 H Total Protein 5.4 L 5.2 L Albumin 2.7 L 2.5 L Albumin/Globulin Ratio 0.9 L Triglycerides 156 H 187 H Urine Occult Blood Ur Leukocyte Esterase Urine RBC Urine WBC Amorphous Crystals 04/09/18 04/08/18 04/08/18 04:00 04:00 04:00 WBC 34.4 H* 51.0 H* RBC 3.81 L 3.77 L Hgb 11.4 L 11.2 L Hct 34.7 L 34.5 L Plt Count 114 L 120 L Gran % 93.0 H 97.3 H Lymph % (Auto) 6.3 L 1.9 L Amelia % (Auto) 0.5 L 0.8 L Gran # 32.0 H 49.6 H Lymph # (Auto) 1.0 L VBG Lactic Acid Chloride 114 H Carbon Dioxide 17 L Anion Gap 7.0 L BUN 29 H Creatinine 1.4 H Glucose 152 H Calcium 8.0 L Phosphorus 2.6 L Magnesium GGT 106 H AST 46 H ALT 78 H Alkaline Phosphatase 202 H Total Protein 5.0 L Albumin 2.2 L Albumin/Globulin Ratio 0.8 L Triglycerides Urine Occult Blood Ur Leukocyte Esterase Urine RBC Urine WBC Amorphous Crystals 04/07/18 04/07/18 04/07/18 13:34 08:19 05:15 WBC RBC Hgb Hct Plt Count Gran % Lymph % (Auto) Amelia % (Auto) Gran # Lymph # (Auto) VBG Lactic Acid 3.2 H Chloride Carbon Dioxide Anion Gap BUN Creatinine Glucose Calcium Phosphorus Magnesium 1.3 L GGT AST ALT Alkaline Phosphatase Total Protein Albumin Albumin/Globulin Ratio Triglycerides Urine Occult Blood 0.2 A Ur Leukocyte Esterase 250 A Urine RBC 4 H Urine WBC 23 H Amorphous Crystals Mod A Meds: Medications Hydrocodone Bitart/Acetaminophen ([place] 7.5/325mg) 1 tab PO Q6HP PRN PRN Reason: PAIN LEVEL 3-6 Albuterol Sulfate (Ventolin) 2.5 mg NEB Q2HP PRN PRN Reason: Shortness Of Breath Dextrose (Dextrose 50%) 0 ml IV UD PRN PRN Reason: Hypoglycemia Diagnostic Test (Pha) (Accu-Chek) 1 each FS ACHS [facility] Last Admin: 04/09/18 21:03 Dose: 1 each Documented by: Fluticasone Propionate (Flonase) 2 spray NS DAILY [facility] Glucose (Insta-Glucose) 15 gm PO PRN PRN PRN Reason: Hypoglycemia Heparin Sodium (Porcine) (Heparin) 5,000 unit SQ Q12 [facility] Last Admin: 04/09/18 21:01 Dose: Not Given Documented by: Hydromorphone HCl (Dilaudid) 0.5 mg IV Q2HP PRN PRN Reason: PAIN LEVEL > 6 Ceftriaxone Sodium 2 gm/ (Dextrose) 50 mls @ 100 mls/hr IV DAILY [facility] Norepinephrine Bitartrate 16 (mg/ Sodium Chloride) 250 mls @ 9.38 mls/hr IV Q24HP PRN; Protocol PRN Reason: TITRATE TO KEEP MAP > 65 Insulin Human Lispro (Humalog) 0 unit SQ ACHS [facility]; Protocol Last Admin: 04/09/18 21:03 Dose: Not Given Documented by: Methocarbamol (Robaxin) 750 mg PO QID [facility] Last Admin: 04/09/18 20:53 Dose: 750 mg Documented by: Ondansetron HCl (Zofran) 4 mg IV Q4-6HP PRN PRN Reason: Nausea And Vomiting Simvastatin (Zocor) 20 mg PO HS [facility] Last Admin: 04/09/18 20:53 Dose: 20 mg Documented by: Sodium Chloride (Saline Flush) 10 ml IV Q8 [facility] Last Admin: 04/09/18 22:00 Dose: Not Given Documented by: Sodium Chloride (Saline Flush) 10 ml IV Q12 [facility] Last Admin: 04/09/18 20:54 Dose: 10 ml Documented by: Sodium Chloride (Saline Flush) 10 ml IV UD PRN PRN Reason: FLUSH Medical - PN: A/P - Time Spent With Patient Total time spent is greater than 50% in coordination of care (as documented) at patient's floor/unit and/or counseling patient: - Narrative A/P Narrative: A: *Severe sepsis with shock/ Left pyelonephritis / GNB Bactermia: resolving -Lactic acidosis/leukocytosis improved *E. coli Infection: as above *Hydronephrosis/Pyonephrosis: s/p stent placement *HARVINDER on likely CKD III: resolved *Thrombocytopenia: Stable *Mild transaminitis: *DM *Hypothermia: Resolved *HTN: * P: -rocephin 2gms q24 hrs, urine cultures pending, but previous cultures were ecoli. sensitive to rocephin -await sensitivity to Blood culture, should be able to go on oral levoflox / cipro for total of 14 days. - appreciate urology input and help, s/p stent placement, outpatient follow up -peripheral smear pending - -BP meds held for now -SSI - -ppx: heparin Full Code Medical - PN: Qual - VTE Deep Vein Thrombosis/Pulmonary Embolism Present on Admission: No
[2018-04-10] MEDS: 0.9 % SODIUM CHLORIDE 10 ML SYRINGE IV SCH ×2 (07:11→08:27)
[2018-04-10] MEDS: INSULIN LISPRO 1 UNIT/0.01 ML UNIT SQ SCH (08:33)
[2018-04-10] MEDS ORDERED: FLUTICASONE PROPIONATE SPRAY.NAS NS SCH (09:00)
[2018-04-10] MEDS: HEPARIN 5,000 UNIT/ML VIAL SQ SCH (09:00)
[2018-04-10] MEDS ORDERED: cefTRIAXone 2 GM in DEXTROSE 5% IN WATER 50 ML IV SCH (09:00)
[2018-04-10] MEDS: METHOCARBAMOL 750 MG TABLET PO SCH (09:48)
== END 2018-04-10 11:40 | disposition home or self-care (01) | DRG 871 ==
LOC: ED 05:00 → ICU 08:45 → MEDSUR 04-09 10:45
PROVIDERS: ADMIT Internal Medicine; ATTEND Internal Medicine